=== PATIENT | female | born 1995 | race African-American/Black ===

== ENCOUNTER 2017-02-02 10:39 | Emergency (ER) | payer SELFPAY ==
[2017-02-02] MEDS ORDERED: IV NORMAL SALINE 1,000ML 1,000 ML IV ONE (11:15)
[2017-02-02 11:29] LABS: BASO % 0 % (0-3); EOS # 0.1 x10^3/uL (0.0-0.7); EOS % 1 % (0-3); HEMATOCRIT 35.2 % (36.0-47.0); LYMPH # 1.7 x10^3/uL (1.0-4.8); LYMPH % 27 % (24-48); MEAN CORPUSCULAR HEMOGLOBIN 30 pg (25-35); MEAN CORPUSCULAR HGB CONC 34 g/dL (31-37); MEAN CORPUSCULAR VOLUME 88 fL (79-100); MONO # 0.4 x10^3/uL (0.0-1.1); MONO % 7 % (0-9); NEUT % 65 % (31-73); PLATELET COUNT 169 x10^3/uL (140-400); RED BLOOD COUNT 4.01 x10^6/uL (3.50-5.40); RED CELL DISTRIBUTION WIDTH 12.9 % (11.5-14.5); WHITE BLOOD COUNT 6.2 x10^3/uL (4.0-11.0)
[2017-02-02] MEDS ORDERED: ACETAMINOPHEN 500 MG TABLET PO ONE (11:30)
[2017-02-02 11:39] LABS: ALBUMIN 3.8 g/dL (3.4-5.0); CALCIUM 8.5 mg/dL (8.5-10.1); CREATININE 0.6 mg/dL (0.6-1.0); GFR 149.9; MAGNESIUM 1.8 mg/dL (1.8-2.4); POTASSIUM 3.4 mmol/L (3.5-5.1); TOTAL BILIRUBIN 0.9 mg/dL (0.2-1.0); TOTAL PROTEIN 7.5 g/dL (6.4-8.2)
[2017-02-02] MEDS ORDERED: ONDANSETRON PF 4 MG/2 ML VIAL. IV ONE (11:50)
--- NOTE | 2017-02-02 12:29 | RAD ---
Indication right-sided abdominal pain. Initially transabdominal scans were obtained. Initial transabdominal scans were supplemented with transvaginal scans. No quantitative hCG value is available. In the fundus of the uterus there is a fluid collection compatible with a gestational sac. A definite yolk sac is not seen and no pole is apparent. Findings would be compatible with a very early, approximately 5 week, IUP. Correlation with a quantitative hCG value advised. The right ovary appears unremarkable. Within the left ovary there is a 1.5 cm mass compatible with a hemorrhagic cyst. There is no significant free fluid seen in the pelvis. IMPRESSION: Intrauterine fluid collection compatible with a gestational sac. No definite yolk sac or pole is seen. This finding should be correlated with a quantitative hCG value. Mass, probably reflecting a small corpus luteal cyst is seen associated with the left ovary
--- NOTE | 2017-02-02 12:31 | RAD ---
Indication right upper quadrant pain. Grayscale images were obtained targeted to the right upper quadrant. The visualized liver appears unremarkable. The gallbladder appears normal. The common bile duct diameter of approximately 3 mm is normal. The right kidney appears normal. The visualized inferior vena cava and pancreas also appear unremarkable. IMPRESSION: Normal right upper quadrant abdominal ultrasound exam
--- NOTE | 2017-02-02 13:16 | PHYS DOC ---
Past History Past Medical History: Other Past Surgical History: No Surgical History Smoking: Non-smoker Alcohol Use: None Drug Use: Marijuana Adult General Chief Complaint Chief Complaint: GI PROBLEM HPI HPI Patient is a 21 year old F who presents with constant dull upper abdominal pain consistent with previous Crohn's flares. She states that her pain usually improves after vomiting and having a bowel movement. However she did both this morning without significant improvement in her symptoms. She feels that her pain is mostly on the right side of her abdomen and upper abdomen. She has not had changes in bowel patterns and has been urinating without difficulty. Analisa did have a positive test 3 days ago at home. Her last period was approximately 5 weeks ago. She has had no care up to this point. Review of Systems Review of Systems Constitutional: Denies fever or chills [] Eyes: Denies change in visual acuity, redness, or eye pain [] HENT: Denies nasal congestion or sore throat [] Respiratory: Denies cough or shortness of breath [] Cardiovascular: No additional information not addressed in HPI [] GI: Negative except history of present illness : Denies dysuria or hematuria [] Musculoskeletal: Denies back pain or joint pain [] Integument: Denies rash or skin lesions [] Neurologic: Denies headache, focal weakness or sensory changes [] Endocrine: Denies polyuria or polydipsia [] Family History Family History Noncontributory Current Medications Current Medications Current Medications Medications (Trade) Dose Ordered Sig/Nely Start Time Stop Time Status Last Admin Dose Admin Acetaminophen (Tylenol) 1,000 mg 1X ONCE 02/02/17 11:30 02/02/17 11:31 DC 02/02/17 11:22 1,000 MG Ondansetron HCl (Zofran) 4 mg 1X ONCE 02/02/17 11:50 02/02/17 11:51 DC 02/02/17 12:19 4 MG Sodium Chloride 1,000 ml @ 1,000 mls/hr 1X ONCE 02/02/17 11:15 02/02/17 12:14 DC 02/02/17 11:21 1,000 MLS/HR Allergies Allergies Allergies Coded Allergies Type Severity Reaction Last Updated Verified No Known Drug Allergies 05/25/15 No Physical Exam Physical Exam Constitutional: Well developed, well nourished, no acute distress, non-toxic appearance. [] HENT: Normocephalic, atraumatic, bilateral external ears normal, oropharynx moist, no oral exudates, nose normal. [] Eyes: PERRLA, EOMI, conjunctiva normal, no discharge. [] Neck: Normal range of motion, no tenderness, supple, no stridor. [] Cardiovascular:Heart rate regular rhythm, no murmur [] Lungs & Thorax: Bilateral breath sounds clear to auscultation [] Abdomen: Bowel sounds normal, soft, no masses, no pulsatile masses. [] Mild right sided and epigastric tenderness to deep palpation Skin: Warm, dry, no erythema, no rash. [] Back: No tenderness, no CVA tenderness. [] Extremities: No tenderness, no cyanosis, no clubbing, ROM intact, no edema. [] Neurologic: Alert and oriented X 3, normal motor function, normal sensory function, no focal deficits noted. [] Psychologic: Affect normal, judgement normal, mood normal. [] Current Patient Data Vital Signs Vital Signs Date Time Temp Pulse Resp B/P (MAP) Pulse Ox O2 Delivery O2 Flow Rate FiO2 02/02/17 10:45 97.5 95 24 100 Room Air Lab Results Laboratory Tests Test 02/02/17 11:11 White Blood Count 6.2 x10^3/uL (4.0-11.0) Red Blood Count 4.01 x10^6/uL (3.50-5.40) Hemoglobin 12.0 g/dL (12.0-15.5) Hematocrit 35.2 % (36.0-47.0) L Mean Corpuscular Volume 88 fL (79-100) Mean Corpuscular Hemoglobin 30 pg (25-35) Mean Corpuscular Hemoglobin Concent 34 g/dL (31-37) Red Cell Distribution Width 12.9 % (11.5-14.5) Platelet Count 169 x10^3/uL (140-400) Neutrophils (%) (Auto) 65 % (31-73) Lymphocytes (%) (Auto) 27 % (24-48) Monocytes (%) (Auto) 7 % (0-9) Eosinophils (%) (Auto) 1 % (0-3) Basophils (%) (Auto) 0 % (0-3) Neutrophils # (Auto) 4.0 x10^3uL (1.8-7.7) Lymphocytes # (Auto) 1.7 x10^3/uL (1.0-4.8) Monocytes # (Auto) 0.4 x10^3/uL (0.0-1.1) Eosinophils # (Auto) 0.1 x10^3/uL (0.0-0.7) Basophils # (Auto) 0.0 x10^3/uL (0.0-0.2) Maternal Serum HCG Beta Subunit 5122 mIU/mL (0-6) H Sodium Level 138 mmol/L (136-145) Potassium Level 3.4 mmol/L (3.5-5.1) L Chloride Level 104 mmol/L (98-107) Carbon Dioxide Level 25 mmol/L (21-32) Anion Gap 9 (6-14) Blood Urea Nitrogen 13 mg/dL (7-20) Creatinine 0.6 mg/dL (0.6-1.0) Estimated GFR (Cockcroft-Gault) 149.9 BUN/Creatinine Ratio 22 (6-20) H Glucose Level 84 mg/dL (70-99) Calcium Level 8.5 mg/dL (8.5-10.1) Magnesium Level 1.8 mg/dL (1.8-2.4) Total Bilirubin 0.9 mg/dL (0.2-1.0) Aspartate Amino Transferase (AST) 17 U/L (15-37) Alanine Aminotransferase (ALT) 17 U/L (14-59) Alkaline Phosphatase 40 U/L (46-116) L Total Protein 7.5 g/dL (6.4-8.2) Albumin 3.8 g/dL (3.4-5.0) Albumin/Globulin Ratio 1.0 (1.0-1.7) Lipase 64 U/L (73-393) L EKG EKG [] Radiology/Procedures Radiology/Procedures Ultrasound abdomen and pelvis Impressions: IUP was noted at approximately 5 weeks. Both the appendix and gallbladder were visualized and found to be normal. No abnormalities in the liver or pancreas. Course & Med Decision Making Course & Med Decision Making Pertinent Labs and Imaging studies reviewed. (See chart for details) Analisa was given IV fluids, nausea medication and Tylenol. She had moderate improvement in her symptoms prior to discharge Dragon Disclaimer Dragon Disclaimer This chart was dictated in whole or in part using Voice Recognition software in a busy, high-work load, and often noisy Emergency Department environment. It may contain unintended and wholly unrecognized errors or omissions. Departure Departure: Impression: Primary Impression: Abdominal pain during Additional Impression: Disposition: 01 HOME, SELF-CARE Condition: STABLE Referrals: PCPEMERALD (PCP) Patient Instructions: Abdominal Pain During Additional Instructions: Analisa was seen in the emergency department for abdominal pain. No emergency medical condition was found on history or physical exam. She did have normal labs and imaging. An ultrasound revealed that her was in her uterus and approximately 5 weeks gestational age. Her pain did improve with IV fluid and medication. She was advised to follow-up with an OB as soon as possible to establish care and for further management. Problem Qualifiers Primary Impression: Abdominal pain during Trimester: first trimester Qualified Codes: O26.891 - Other specified related conditions, first trimester; R10.9 - Unspecified abdominal pain Additional Impression: Weeks of gestation: less than 8 weeks Qualified Codes: Z3A.01 - Less than 8 weeks gestation of MAXIMUS CARREON MD Feb 02, 2017 13:16
[2017-02-02 13:33] VITALS: BP 118/68
== END 2017-02-02 13:30 | disposition home or self-care (01) ==
LOC: ER 10:39
DX: O26.891 Other specified pregnancy related conditions, first trimester (principal); O21.9 Vomiting of pregnancy, unspecified; R10.11 Right upper quadrant pain; R10.13 Epigastric pain; F12.10 Cannabis abuse, uncomplicated; Z3A.08 8 weeks gestation of pregnancy
CPT/HCPCS: 36415; 76705; 76801; 76817; 80053; 83690; 83735; 84702; 85025; 96361; 96374; 99285; J2405; J7030

== ENCOUNTER 2017-02-07 18:49 | Emergency (ER) | payer SELFPAY ==
[~2017-02-07] VITALS: Ht 162.6 cm; Wt 62.6 kg
--- NOTE | 2017-02-07 18:52 | ED.ADGEN ---
Past History Past Medical History: Other Past Surgical History: No Surgical History Smoking: Non-smoker Alcohol Use: None Drug Use: Marijuana Adult General Chief Complaint Chief Complaint " I am about 6 weeks pregant.. it my first.. and I am just puking all day..." HPI HPI Patient is a 21 year old female who presents with above hx and complaints. Patient estimates she is approximately 6 weeks gravid. Ultrasound also rates her at 6 weeks 1 day. Patient denies any trauma. Patient denies any bad food. Patient denies any immunosuppression. Patient denies any travel. Patient denies any history of trauma. Pt. has had dry heaves all day. This is pt. lst . There is no history of STDs. Review of Systems Review of Systems Constitutional: Denies fever or chills [] Eyes: Denies change in visual acuity, redness, or eye pain [] HENT: Denies nasal congestion or sore throat [] Respiratory: Denies cough or shortness of breath [] Cardiovascular: No additional information not addressed in HPI [] GI: Complaints of generalized abdominal pain, nausea, vomiting,. Denies bloody stools or diarrhea [] : Denies dysuria or hematuria [] Musculoskeletal: Denies back pain or joint pain [] Integument: Denies rash or skin lesions [] Neurologic: Denies headache, focal weakness or sensory changes [] Endocrine: Denies polyuria or polydipsia [] Family History Family History Noncontributory Current Medications Current Medications Current Medications Medications (Trade) Dose Ordered Sig/Nely Start Time Stop Time Status Last Admin Dose Admin Famotidine (Pepcid) 20 mg 1X ONCE 02/07/17 19:45 02/07/17 19:50 DC 02/07/17 19:45 20 MG Fentanyl Citrate (Fentanyl 2ml Vial) 25 mcg 1X ONCE 02/07/17 19:45 02/07/17 19:50 DC 02/07/17 19:45 25 MCG Lactated Ringer's 1,000 ml @ 1,000 mls/hr Q1H 02/07/17 19:45 02/07/17 20:34 DC 02/07/17 19:00 1,000 MLS/HR Ondansetron HCl (Zofran Odt) 4 mg 1X ONCE 02/07/17 23:15 02/07/17 23:36 DC 02/07/17 19:08 4 MG Ondansetron HCl (Zofran) 4 mg 1X ONCE 02/07/17 19:45 02/07/17 19:50 DC 02/07/17 19:45 4 MG Sodium Chloride 1,000 ml @ 1,000 mls/hr 1X ONCE 02/07/17 23:15 02/07/17 23:36 DC 02/07/17 22:30 1,000 MLS/HR Allergies Allergies Allergies Coded Allergies Type Severity Reaction Last Updated Verified No Known Drug Allergies 05/25/15 No Physical Exam Physical Exam Constitutional: in acute distress, non-toxic appearance. [] HENT: Normocephalic, atraumatic, bilateral external ears normal, oropharynx dry , no oral exudates, nose normal. [] Eyes: PERRLA, EOMI, conjunctiva normal, no discharge. [] Neck: Normal range of motion, no tenderness, supple, no stridor. [] Cardiovascular:Heart rate regular rhythm, no murmur [] Lungs & Thorax: Bilateral breath sounds clear to auscultation [] Abdomen: Bowel sounds hyperactive, soft, generalized tenderness, no masses, no pulsatile masses. No active vaginal bleeding. Skin: Warm, dry, no erythema, no rash. [] Poor turgor Back: No tenderness, no CVA tenderness. [] Extremities: No tenderness, no cyanosis, no clubbing, ROM intact, no edema. [] No psoas or obturator sign Neurologic: Alert and oriented X 3, normal motor function, normal sensory function, no focal deficits noted. [] Psychologic: Affect normal, judgement normal, mood normal. [] Current Patient Data Lab Results Laboratory Tests Test 02/07/17 19:16 02/07/17 20:13 White Blood Count 6.6 x10^3/uL (4.0-11.0) Red Blood Count 4.08 x10^6/uL (3.50-5.40) Hemoglobin 12.2 g/dL (12.0-15.5) Hematocrit 35.3 % (36.0-47.0) L Mean Corpuscular Volume 87 fL (79-100) Mean Corpuscular Hemoglobin 30 pg (25-35) Mean Corpuscular Hemoglobin Concent 35 g/dL (31-37) Red Cell Distribution Width 12.6 % (11.5-14.5) Platelet Count 173 x10^3/uL (140-400) Neutrophils (%) (Auto) 40 % (31-73) Lymphocytes (%) (Auto) 49 % (24-48) H Monocytes (%) (Auto) 9 % (0-9) Eosinophils (%) (Auto) 2 % (0-3) Basophils (%) (Auto) 1 % (0-3) Neutrophils # (Auto) 2.7 x10^3uL (1.8-7.7) Lymphocytes # (Auto) 3.2 x10^3/uL (1.0-4.8) Monocytes # (Auto) 0.6 x10^3/uL (0.0-1.1) Eosinophils # (Auto) 0.1 x10^3/uL (0.0-0.7) Basophils # (Auto) 0.0 x10^3/uL (0.0-0.2) Prothrombin Time 10.9 SEC (9.4-11.4) Prothrombin Time INR 1.1 (0.9-1.1) PTT 24 SEC (23-33) Maternal Serum HCG Beta Subunit 14111 mIU/mL (0-6) H Sodium Level 138 mmol/L (136-145) Potassium Level 3.2 mmol/L (3.5-5.1) L Chloride Level 104 mmol/L (98-107) Carbon Dioxide Level 20 mmol/L (21-32) L Anion Gap 14 (6-14) Blood Urea Nitrogen 12 mg/dL (7-20) Creatinine 0.7 mg/dL (0.6-1.0) Estimated GFR (Cockcroft-Gault) 125.5 BUN/Creatinine Ratio 17 (6-20) Glucose Level 91 mg/dL (70-99) Calcium Level 9.3 mg/dL (8.5-10.1) Total Bilirubin 0.8 mg/dL (0.2-1.0) Aspartate Amino Transferase (AST) 16 U/L (15-37) Alanine Aminotransferase (ALT) 18 U/L (14-59) Alkaline Phosphatase 34 U/L (46-116) L Troponin I Quantitative < 0.017 ng/mL (0-0.055) Total Protein 7.7 g/dL (6.4-8.2) Albumin 4.1 g/dL (3.4-5.0) Albumin/Globulin Ratio 1.1 (1.0-1.7) Lipase 67 U/L (73-393) L Urine Collection Type Unknown Urine Color Yellow Urine Clarity Cloudy Urine pH 6.0 Urine Specific [place] >=1.030 Urine Protein 30 mg/dl (NEG-TRACE) Urine Glucose (UA) Neg mg/dL (NEG) Urine Ketones (Stick) 40 mg/dL (NEG) Urine Blood Neg (NEG) Urine Nitrite Neg (NEG) Urine Bilirubin Neg (NEG) Urine Urobilinogen Dipstick 1 mg/dL (0.2 mg/dL) Urine Leukocyte Esterase Neg (NEG) Urine RBC 1-2 /HPF (0-2) Urine WBC 1-4 /HPF (0-4) Urine Squamous Epithelial Cells Mod /LPF Urine Bacteria Few /HPF (0-FEW) Urine Mucus Mod /LPF Urine Opiates Screen Neg (NEG) Urine Methadone Screen Neg (NEG) Urine Barbiturates Neg (NEG) Urine Phencyclidine Screen Neg (NEG) Urine Amphetamine/Methamphetamine Neg (NEG) Urine Benzodiazepines Screen Neg (NEG) Urine Cocaine Screen Neg (NEG) Urine Cannabinoids Screen Pos (NEG) Urine Ethyl Alcohol Neg (NEG) EKG EKG [] Radiology/Procedures Radiology/Procedures Possible IUP[]-by ultrasound. See formal report when available. No heart rate yet determined. Estimated 6 weeks 1 day. Estimated date of 10/01/17 Course & Med Decision Making Course & Med Decision Making Pertinent Labs and Imaging studies reviewed. (See chart for details). Frequent , constant sips of juices and fluids. Zofran 4 mg up 4 x day for severe nausea and vomiting. Benadryl 25- 50 mg may be helpful. Must follow up cultures. Estelita candy or tea may be helpful for nausea and vomiting. Must follow up Ob. Daily vitamin or chew two Flinstones. Recommend no smoking. Must follow-up [] Final Impression Final Impression 1. Hyperemesis gravidarum [2.Dehydration 3. Hypokalemia 4. Blood Type A+ 5. Marijuana Use 6. BHCG= 21, 914 7. Possible Early IUP- (no heart rate detected as yet) Problems: Dragon Disclaimer Dragon Disclaimer This electronic medical record was generated, in whole or in part, using a voice recognition dictation system. ELIZABETH MORAN MD Feb 07, 2017 18:52
[2017-02-07] MEDS ORDERED: ONDANSETRON ODT 4 MG TAB.RAPDIS ONE (19:07)
[2017-02-07] MEDS ORDERED: IV RINGERS SOLUTION,LACTATED 1,000 ML IV SCH (19:45)
[2017-02-07] MEDS ORDERED: FAMOTIDINE 20 MG/2 ML VIAL IVP ONE (19:45)
[2017-02-07] MEDS ORDERED: ONDANSETRON PF 4 MG/2 ML VIAL. IV ONE (19:45)
[2017-02-07 20:03] LABS: BASO % 1 % (0-3); EOS # 0.1 x10^3/uL (0.0-0.7); EOS % 2 % (0-3); HEMATOCRIT 35.3 % (36.0-47.0); HEMOGLOBIN 12.2 g/dL (12.0-15.5); LYMPH # 3.2 x10^3/uL (1.0-4.8); LYMPH % 49 % (24-48); MEAN CORPUSCULAR HEMOGLOBIN 30 pg (25-35); MEAN CORPUSCULAR HGB CONC 35 g/dL (31-37); MEAN CORPUSCULAR VOLUME 87 fL (79-100); MONO # 0.6 x10^3/uL (0.0-1.1); MONO % 9 % (0-9); NEUT # 2.7 x10^3uL (1.8-7.7); NEUT % 40 % (31-73); PLATELET COUNT 173 x10^3/uL (140-400); RED BLOOD COUNT 4.08 x10^6/uL (3.50-5.40); RED CELL DISTRIBUTION WIDTH 12.6 % (11.5-14.5); WHITE BLOOD COUNT 6.6 x10^3/uL (4.0-11.0)
[2017-02-07 20:07] LABS: ALBUMIN 4.1 g/dL (3.4-5.0); ALBUMIN/GLOBULIN RATIO 1.1 (1.0-1.7); CALCIUM 9.3 mg/dL (8.5-10.1); CREATININE 0.7 mg/dL (0.6-1.0); GFR 125.5; POTASSIUM 3.2 mmol/L (3.5-5.1); TOTAL BILIRUBIN 0.8 mg/dL (0.2-1.0); TOTAL PROTEIN 7.7 g/dL (6.4-8.2)
[2017-02-07 20:45] LABS: BARBITURATES NEG (NEG); BENZODIAZEPINES NEG (NEG); CANNABINOIDS POS (NEG); COCAINE NEG (NEG); METHADONE NEG (NEG); OPIATES NEG (NEG); PHENCYCLIDINE NEG (NEG)
[2017-02-07 20:46] LABS: AMPHETAMINE/METHAMPHETAMINE NEG (NEG)
[2017-02-07 21:20] LABS: COLOR,URINE YELLOW
[2017-02-07 21:21] LABS: BACTERIA,URINE FEW /HPF (0-FEW); BILIRUBIN,URINE NEG (NEG); CLARITY,URINE CLOUDY; GLUCOSE,URINE NEG (NEG); NITRITE,URINE NEG (NEG); SQUAMOUS EPITHELIAL CELL,UR MOD /LPF; UROBILINOGEN,URINE 1 mg/dL (0.2 mg/dL)
[2017-02-07 22:36] VITALS: BP 100/64
--- NOTE | 2017-02-07 22:57 | RAD ---
First trimester OB ultrasound HISTORY: Abdominal pain and vomiting. . COMPARISON: None are available at this time. Transabdominal scan Uterus and adnexa are poorly seen. Transvaginal scan Uterus measures 8.3 cm longitudinal by 4.5 cm AP. Uterus measures 5.8 cm wide. Gestational sac is identified with a yolk sac. A pole or cardiac activity are not demonstrated. The gestational sac measures a mean sac diameter of 1.29 cm compatible with an estimated age of 6 weeks 1 day. Right ovary measures 2.9 cm long axis. Positive blood flow to the right ovary. Left ovary measures 3.4 cm long axis with positive blood flow and a small cyst. Mild free pelvic fluid is identified. IMPRESSION: A gestational sac with yolk sac is not identified. However, a pole and cardiac activity are not documented at this time. This could still be due to an early normal . Recommend correlation with quantitative beta hCG value. A short-term ultrasound follow-up could be obtained. Electronically signed by: Gabriel Phan MD (02/07/2017 10:54 PM) [id number]
[2017-02-07] MEDS ORDERED: IV NORMAL SALINE 1,000ML 1,000 ML IV ONE (23:15)
[2017-02-07] MEDS ORDERED: ONDANSETRON ODT 4 MG TAB.RAPDIS PO ONE (23:15)
[2017-02-07] MEDS ORDERED: ONDA8TAB12 PO (23:20)
== END 2017-02-07 23:32 | disposition home or self-care (01) ==
LOC: ER 18:49
DX: O21.1 Hyperemesis gravidarum with metabolic disturbance (principal); E86.0 Dehydration; R10.84 Generalized abdominal pain; O99.321 Drug use complicating pregnancy, first trimester; F12.10 Cannabis abuse, uncomplicated; Z3A.01 Less than 8 weeks gestation of pregnancy
CPT/HCPCS: 36415; 76801; 80053; 80307; 81001; 83690; 84484; 84702; 85025; 85610; 85730; 86900; 86901; 96361; 96374; 96375; 99285; J2405; J3010; J7120; Q0162; S0028; G0479; J7030

== ENCOUNTER 2017-02-10 18:57 | Emergency (ER) | payer OTHER ==
[~2017-02-10 18:57] MED LIST: ONDA8TAB12 PO
[2017-02-10] MEDS ORDERED: IV NORMAL SALINE 1,000ML 1,000 ML IV ONE ×2 (19:30→20:30)
[2017-02-10] MEDS ORDERED: ONDANSETRON PF 4 MG/2 ML VIAL. IV ONE ×2 (19:45→23:00)
[2017-02-10 19:50] LABS: BASO % 1 % (0-3); EOS # 0.1 x10^3/uL (0.0-0.7); EOS % 1 % (0-3); HEMATOCRIT 35.3 % (36.0-47.0); HEMOGLOBIN 12.1 g/dL (12.0-15.5); LYMPH # 2.5 x10^3/uL (1.0-4.8); LYMPH % 38 % (24-48); MEAN CORPUSCULAR HEMOGLOBIN 30 pg (25-35); MEAN CORPUSCULAR HGB CONC 34 g/dL (31-37); MEAN CORPUSCULAR VOLUME 88 fL (79-100); MONO # 0.6 x10^3/uL (0.0-1.1); MONO % 10 % (0-9); NEUT # 3.3 x10^3uL (1.8-7.7); NEUT % 50 % (31-73); PLATELET COUNT 160 x10^3/uL (140-400); RED BLOOD COUNT 4.03 x10^6/uL (3.50-5.40); RED CELL DISTRIBUTION WIDTH 12.9 % (11.5-14.5); WHITE BLOOD COUNT 6.5 x10^3/uL (4.0-11.0)
[2017-02-10 19:55] LABS: ALBUMIN 4.2 g/dL (3.4-5.0); ALBUMIN/GLOBULIN RATIO 1.2 (1.0-1.7); CALCIUM 9.3 mg/dL (8.5-10.1); CREATININE 0.7 mg/dL (0.6-1.0); GFR 125.5; POTASSIUM 3.1 mmol/L (3.5-5.1); TOTAL BILIRUBIN 1.2 mg/dL (0.2-1.0); TOTAL PROTEIN 7.8 g/dL (6.4-8.2)
[2017-02-10 20:05] LABS: BACTERIA,URINE FEW /HPF (0-FEW); BILIRUBIN,URINE NEG (NEG); CLARITY,URINE HAZY; COLOR,URINE AMBER; GLUCOSE,URINE NEG (NEG); NITRITE,URINE NEG (NEG); SQUAMOUS EPITHELIAL CELL,UR MANY /LPF; UROBILINOGEN,URINE 1 mg/dL (0.2 mg/dL)
--- NOTE | 2017-02-10 20:07 | ED.ADGEN ---
Past History Past Medical History: Other Past Surgical History: No Surgical History Smoking: Non-smoker Alcohol Use: None Drug Use: None Adult General HPI HPI Patient is a 21-year-old woman, history of Crohn's disease, who is at 6 weeks gestation with a single IUP visualized on ultrasound during an ED visit several days ago, who presents emergency Department with a complaint of persistent nausea and vomiting. Patient states that she is experiencing vomiting "all the time". She states she is unable tolerate food or fluids due to the nausea and vomiting. States that initially she was vomiting food and fluid, now has blood-tinged mucus. Patient states she has been using Zofran as directed, states that does not seem it is working, she states however that she is "only been taking on I really need it". Patient denies any rigors or chills, states that she has pain that radiates from her upper abdomen into her throat, "a burning feeling". She denies any lower abdominal pain or cramping, any pain with urination, however states that when she was given a urine sample in the ED she did note some spotting, with small amounts of blood. Review of Systems Review of Systems Constitutional: Denies fever or chills [] Eyes: Denies change in visual acuity, redness, or eye pain [] HENT: Denies nasal congestion or sore throat [] Respiratory: Denies cough or shortness of breath [] Cardiovascular: No additional information not addressed in HPI [] GI: Upper abdominal pain radiating into the throat, nausea, vomiting, no bloody stools or diarrhea. : Denies dysuria or hematuria []vaginal spotting in the ED. Musculoskeletal: Denies back pain or joint pain [] Integument: Denies rash or skin lesions [] Neurologic: Denies headache, focal weakness or sensory changes [] Endocrine: Denies polyuria or polydipsia [] Current Medications Current Medications Current Medications Medications (Trade) Dose Ordered Sig/Nely Start Time Stop Time Status Last Admin Dose Admin Al Hydroxide/Mg Hydroxide (Mylanta Plus Xs) 30 ml 1X ONCE 02/10/17 20:15 02/10/17 20:16 DC 02/10/17 20:24 30 ML Cephalexin HCl (Keflex) 500 mg 1X ONCE 02/10/17 23:00 02/10/17 23:01 DC 02/10/17 22:58 500 MG Diphenhydramine HCl (Benadryl) 25 mg 1X ONCE 02/10/17 20:15 02/10/17 20:16 DC 02/10/17 20:28 25 MG Metoclopramide HCl (Reglan) 10 mg 1X ONCE 02/10/17 20:15 02/10/17 20:16 DC 02/10/17 20:28 10 MG Metronidazole (Flagyl) 500 mg 1X ONCE 02/10/17 22:00 02/10/17 22:01 DC 02/10/17 22:12 500 MG Ondansetron HCl (Zofran) 4 mg 1X ONCE 02/10/17 23:00 02/10/17 23:01 DC 02/10/17 22:58 4 MG Potassium Chloride (Klor-Con) 40 meq 1X ONCE 02/10/17 22:00 02/10/17 22:01 DC 02/10/17 22:13 40 MEQ Sodium Chloride 1,000 ml @ 1,000 mls/hr 1X ONCE 02/10/17 20:30 02/10/17 21:29 DC 02/10/17 20:45 1,000 MLS/HR Allergies Allergies Allergies Coded Allergies Type Severity Reaction Last Updated Verified No Known Drug Allergies 05/25/15 No Physical Exam Physical Exam Constitutional: Well developed, well nourished, appears uncomfortable, non- toxic appearance. [] HENT: Normocephalic, atraumatic, bilateral external ears normal, oropharynx moist, no oral exudates, nose normal. [] Eyes: PERRLA, EOMI, conjunctiva normal, no discharge. [] Neck: Normal range of motion, no tenderness, supple, no stridor. [] Cardiovascular:Heart rate regular rhythm, no murmur, S1, S2, rubs or gallops. [] Lungs & Thorax: Bilateral breath sounds clear to auscultation, no wheezing, rhonchi, rales. No chest wall crepitus or tenderness. [] Abdomen: Bowel sounds normal, soft, mild initial patient in the epigastric region, no right upper quadrant tenderness, no lower abdominal tenderness, no rebound, rigidity, no guarding, no masses, no pulsatile masses. [] Skin: Warm, dry, no erythema, no rash. [] Back: No tenderness, no CVA tenderness. [] Extremities: No tenderness, no cyanosis, no clubbing, ROM intact, no edema. Negative Homans sign. [] Neurologic: Alert and oriented X 3, normal motor function, normal sensory function, no focal deficits noted. [] Psychologic: Affect normal, judgement normal, mood normal. [] Pelvic examination: External examination is normal, bimanual examination reveals a closed os, no tenderness to palpation, no adnexal masses or tenderness identified. Patient noted to have a moderate amount of white discharge, and a small amount of blood noted on glove, which was read, speculum examination performed of issue, reveals a normal-appearing cervix, with a small amount of raul blood noted at os, no masses, no leakage or oozing, no passage of tissue, no clots, no fluid, no other abnormalities identified. Specimens taken without issue. Current Patient Data Vital Signs Vital Signs Date Time Temp Pulse Resp B/P (MAP) Pulse Ox O2 Delivery O2 Flow Rate FiO2 02/11/17 00:01 98.3 84 16 99/42 (61) 100 Room Air Lab Results Laboratory Tests Test 02/10/17 19:15 02/10/17 19:26 Urine Collection Type Unknown Urine Color Nataliia Urine Clarity Hazy Urine pH 6.0 Urine Specific Industry >=1.030 Urine Protein 30 mg/dl (NEG-TRACE) Urine Glucose (UA) Neg mg/dL (NEG) Urine Ketones (Stick) >=160 mg/dL (NEG) Urine Blood Trace (NEG) Urine Nitrite Neg (NEG) Urine Bilirubin Neg (NEG) Urine Urobilinogen Dipstick 1 mg/dL (0.2 mg/dL) Urine Leukocyte Esterase Neg (NEG) Urine RBC 3-5 /HPF (0-2) Urine WBC 5-10 /HPF (0-4) Urine Squamous Epithelial Cells Many /LPF Urine Bacteria Few /HPF (0-FEW) Urine Mucus Marked /LPF White Blood Count 6.5 x10^3/uL (4.0-11.0) Red Blood Count 4.03 x10^6/uL (3.50-5.40) Hemoglobin 12.1 g/dL (12.0-15.5) Hematocrit 35.3 % (36.0-47.0) L Mean Corpuscular Volume 88 fL (79-100) Mean Corpuscular Hemoglobin 30 pg (25-35) Mean Corpuscular Hemoglobin Concent 34 g/dL (31-37) Red Cell Distribution Width 12.9 % (11.5-14.5) Platelet Count 160 x10^3/uL (140-400) Neutrophils (%) (Auto) 50 % (31-73) Lymphocytes (%) (Auto) 38 % (24-48) Monocytes (%) (Auto) 10 % (0-9) H Eosinophils (%) (Auto) 1 % (0-3) Basophils (%) (Auto) 1 % (0-3) Neutrophils # (Auto) 3.3 x10^3uL (1.8-7.7) Lymphocytes # (Auto) 2.5 x10^3/uL (1.0-4.8) Monocytes # (Auto) 0.6 x10^3/uL (0.0-1.1) Eosinophils # (Auto) 0.1 x10^3/uL (0.0-0.7) Basophils # (Auto) 0.0 x10^3/uL (0.0-0.2) Maternal Serum HCG Beta Subunit 30182 mIU/mL (0-6) H Sodium Level 137 mmol/L (136-145) Potassium Level 3.1 mmol/L (3.5-5.1) L Chloride Level 102 mmol/L (98-107) Carbon Dioxide Level 24 mmol/L (21-32) Anion Gap 11 (6-14) Blood Urea Nitrogen 12 mg/dL (7-20) Creatinine 0.7 mg/dL (0.6-1.0) Estimated GFR (Cockcroft-Gault) 125.5 BUN/Creatinine Ratio 17 (6-20) Glucose Level 92 mg/dL (70-99) Calcium Level 9.3 mg/dL (8.5-10.1) Total Bilirubin 1.2 mg/dL (0.2-1.0) H Aspartate Amino Transferase (AST) 16 U/L (15-37) Alanine Aminotransferase (ALT) 17 U/L (14-59) Alkaline Phosphatase 33 U/L (46-116) L Total Protein 7.8 g/dL (6.4-8.2) Albumin 4.2 g/dL (3.4-5.0) Albumin/Globulin Ratio 1.2 (1.0-1.7) Lipase 80 U/L (73-393) Microbiology 02/10/17 Wet Prep - Final, Complete EKG EKG Not indicated.[] Radiology/Procedures Radiology/Procedures [][address] [address] IMAGING REPORT Signed PATIENT: INA BAI ACCOUNT: [id number] : 1995 LOCATION: ER AGE: 21 SEX: F EXAM STATUS: REG ER ORD. PHYSICIAN: MOSES DURANT DO REASON: Vag bleeding/abd pain/N/V PROCEDURE: OB <14 WKS W/TV OB ultrasound less than 14 weeks to include transabdominal and transvaginal imaging 02/10/2017 CLINICAL HISTORY: First trimester with vaginal spotting. TECHNIQUE: Using the distended urinary bladder as a sonographic window, a real-time ultrasound examination of the pelvis was performed. Additionally in an attempt to better evaluate the uterus and adnexa, a transvaginal ultrasound study was performed. Multiple images were obtained. FINDINGS: Comparison study is dated 02/07/2017. A gestational sac is seen within the endometrial canal within the body/fundus of the uterus. Within the gestational sac a yolk sac and associated embryonic pole are seen. The CRL of this embryonic pole measures 4 mm. This corresponds to an estimated gestational age by ultrasound of 6 weeks 1 day plus or minus a standard deviation of 5 days. Embryonic cardiac activity is seen with a heart rate of 105 beats per minutes. Lateral to the gestational sac within the uterus is a heterogeneous oval-shaped area of decreased echogenicity is seen which measures 1.6 cm greatest diameter. This is consistent with an area of subchorionic hemorrhage. The uterus is otherwise within normal limits. The maternal cervix is closed. It measures 3.3 cm in length. The right ovary is normal in size and echogenicity. It measures 3.1 x 1.9 x 1.8 cm in size. The left ovary measures 3.5 x 2.2 x 2.9 cm in size. Within the left ovary a complex cystic area is seen which measures 2.3 cm in size. This likely represents a corpus luteum. Small amount of free fluid is seen within the pelvic cul-de-sac. IMPRESSION: Findings are seen consistent with a single living IUP with an estimated gestational age by ultrasound of 6 weeks 1 day plus or minus a standard deviation of 4 days. The estimated date of delivery by ultrasound of 10/05/2017. Electronically signed by: Indio Sanz MD (02/10/2017 11:27 PM) [facility] DICTATED AND SIGNED BY: INDIO SANZ MD DATE: 02/10/17 [id number] CC: MOSES DURANT DO; PCP,NO ~ Course & Med Decision Making Course & Med Decision Making Pertinent Labs and Imaging studies reviewed. (See chart for details) [][address] [address] IMAGING REPORT Signed PATIENT: INA BAI ACCOUNT: [id number] : 1995 LOCATION: ER AGE: 21 SEX: F EXAM STATUS: REG ER ORD. PHYSICIAN: ELIZABETH MORAN MD REASON: Abd. pain gravid 6 weeks PROCEDURE: PREG 1ST TRIMESTER ADDENDUM There is a typographic error in the first sentence of the impression, which mistakenly said "a gestational sac with yolk sac is not identified ". For clarification, a gestational sac with yolk sac is identified. The impression should read as follows IMPRESSION: A gestational sac with yolk sac is identified. However a pole and cardiac activity are not documented at this time. This could still be due to an early normal . Recommend correlation with quantitative beta hCG values. A short-term ultrasound follow-up could be obtained in several days to evaluate for pole and cardiac activity development. This correction was communicated by telephone with Dr. Porter in the emergency room at 2310 hours. Electronically signed by: Gabriel Phan MD (02/07/2017 11:13 PM) [facility] DICTATED AND SIGNED BY: GABRIEL PHAN MD DATE: 02/07/17 0460 CC: ELIZABETH MORAN MD; PCP,NO ~ Review of records shows that his previous visit, ultrasound showed a gestational sac with evidence of cardiac activity or pole, which began consistent with early , therefore repeat beta Quant was ordered. Patient's laboratory studies were also ordered, patient received Zofran, IV fluids, Reglan and Benadryl in the ED. Patient at this point is spitting up clear mucus, with no actual emesis noted at this time. Patient states she still feels extremely nauseated, is complaining mostly of burning in the esophageal region. Discussed with patient that this is consistent with her multiple sodas of emesis, but as stated she's had no raul blood, did have blood-tinged mucus, and has no blood and mucus currently. Pelvic examination reveals a small amount of red blood at the os, os however is closed, no evidence of passage of tissue, no clots or passage of tissue noted, no passage of fluid, os is otherwise unremarkable with no friability. Examination is nontender, patient has no pain with palpation, no adnexal masses or other abnormalities identified. Patient's previous evaluation reviewed, although it appears that this is likely an IUP, previous ultrasound states that as there is no pole or cardiac activity at this time, although this is a presumed gestational sac, repeat ultrasound is recommended. At this time, as patient is presenting with vaginal bleeding, and persistent symptoms, will order repeat ultrasound for evaluation. Patient is agreeable with this plan. Patient received Maalox, Zofran, Reglan and Benadryl, with syncope improvement of nausea and vomiting symptoms. IV fluids infusing, patient's vital signs are within normal limits. Laboratory studies reveal a potassium of 3.1, wet prep reveals clue cells consistent with bacterial vaginosis. Patient also noted to have bacteria in the urine, with 5-10 WBCs. Patient received metronidazole, potassium chloride orally, and Keflex in the ED. Patient at this point has not had any further emesis in the ED, states that she is feeling better, is asleep on reevaluation, awaiting ultrasound. Delay in obtaining ultrasound due to multiple ultrasounds required [facility] prior to the instrument repair technician being able to drive out to [place] to perform the patient 's ultrasound. Ultrasound reveals a single IUP at 6 weeks 1 day, heart tones at 105 bpm, appropriate for the patient's gestational age. Patient noted to have a subchorionic hemorrhage, consistent with the examination findings, and a closed cervix, consistent with examination as well. Patient has had no further bleeding , and denies any lower abdominal pain. She states that her epigastric pain is improved with medications. As stated she's had no further emesis in the ED. Patient received medications as stated, she tolerated without issue. Additionally, patient received RhoGAM, after discussed risk versus benefits regarding future pregnancies. Lengthy discussion at bedside with patient regarding risk of potential miscarriage associated with subchorionic hemorrhage , importance of staying well-hydrated, potassium rich diet, use of Zofran, Reglan, B6 and Unasyn, additionally importance of taking Keflex and metronidazole as directed. Patient was informed that if culture results require change in medications she will be contacted via telephone. Patient was instructed to contact her OB, with whom she has an initial visit on the 05 of March, to determine if she can arrange for earlier follow-up, and test of cure. We also discussed concerning symptoms that would prompt return to the emergency department for additional evaluation. Patient voiced understanding and agreement with instructions Precautions, and prescriptions, discharged home in stable condition with plan and precautions as above. Final Impression Final Impression [] Problems: Dragon Disclaimer Dragon Disclaimer This electronic medical record was generated, in whole or in part, using a voice recognition dictation system. Departure: Impression: Primary Impression: Bacterial vaginosis Additional Impressions: Bacteriuria in Hypokalemia Hyperemesis gravidarum Subchorionic hemorrhage in first trimester Disposition: 01 HOME, SELF-CARE Condition: IMPROVED Scripts Pyridoxine Hcl (VITAMIN B-6) 25 Mg Tablet 25 MG PO TID for NAUSEA, #27 TAB Prov: MOSES DURANT DO 02/11/17 Doxylamine Succinate (Unisom) 25 Mg Tablet 25 MG PO PRN QHS Y for NAUSEA, #20 TAB Take one half tablet to one full tablet at bedtime to help prevent nausea. Caution with use of this medication as it causes drowsiness. Prov: MOSES DURANT DO 02/11/17 Cephalexin (KEFLEX) 500 Mg Capsule 1 CAP PO BID, #14 CAP Prov: MOSES DURANT DO 02/11/17 Metronidazole (METRONIDAZOLE) 500 Mg Tablet 1 TAB PO BID, #14 TAB Prov: MOSES DURANT DO 02/11/17 Metoclopramide Hcl (REGLAN) 10 Mg Tablet 1 TAB PO PRN Q8HRS Y for NAUSEA/VOMITING, #20 TAB Prov: MOSES DURANT DO 02/11/17 Ondansetron Hcl (ZOFRAN) 4 Mg Tablet 4 MG PO PRN Q8HRS Y for NAUSEA/VOMITING, #20 Prov: MOSES DURANT DO 02/11/17 MOSES DURANT DO Feb 10, 2017 20:07
[2017-02-10] MEDS ORDERED: METOCLOPRAMIDE HCL 10 MG/2 ML VIAL. IV ONE (20:15)
[2017-02-10] MEDS ORDERED: diphenhydrAMINE 50 MG/ML VIAL IVP ONE (20:15)
[2017-02-10] MEDS ORDERED: MAG HYDROX/AL HYDROX/SIMETH 30 ML ORAL.SUSP PO ONE (20:15)
[2017-02-10] MEDS ORDERED: POTASSIUM CHLORIDE 20 MEQ TABLET.ER. PO ONE (22:00)
[2017-02-10] MEDS ORDERED: metroNIDAZOLE 500 MG TABLET PO ONE (22:00)
[2017-02-10] MEDS ORDERED: CEPHALEXIN 250 MG CAPSULE PO ONE (23:00)
--- NOTE | 2017-02-10 23:31 | RAD ---
OB ultrasound less than 14 weeks to include transabdominal and transvaginal imaging 02/10/2017 CLINICAL HISTORY: First trimester with vaginal spotting. TECHNIQUE: Using the distended urinary bladder as a sonographic window, a real-time ultrasound examination of the pelvis was performed. Additionally in an attempt to better evaluate the uterus and adnexa, a transvaginal ultrasound study was performed. Multiple images were obtained. FINDINGS: Comparison study is dated 02/07/2017. A gestational sac is seen within the endometrial canal within the body/fundus of the uterus. Within the gestational sac a yolk sac and associated embryonic pole are seen. The CRL of this embryonic pole measures 4 mm. This corresponds to an estimated gestational age by ultrasound of 6 weeks 1 day plus or minus a standard deviation of 5 days. Embryonic cardiac activity is seen with a heart rate of 105 beats per minutes. Lateral to the gestational sac within the uterus is a heterogeneous oval-shaped area of decreased echogenicity is seen which measures 1.6 cm greatest diameter. This is consistent with an area of subchorionic hemorrhage. The uterus is otherwise within normal limits. The maternal cervix is closed. It measures 3.3 cm in length. The right ovary is normal in size and echogenicity. It measures 3.1 x 1.9 x 1.8 cm in size. The left ovary measures 3.5 x 2.2 x 2.9 cm in size. Within the left ovary a complex cystic area is seen which measures 2.3 cm in size. This likely represents a corpus luteum. Small amount of free fluid is seen within the pelvic cul-de-sac. IMPRESSION: Findings are seen consistent with a single living IUP with an estimated gestational age by ultrasound of 6 weeks 1 day plus or minus a standard deviation of 4 days. The estimated date of delivery by ultrasound of 10/05/2017. Electronically signed by: Indio Sanz MD (02/10/2017 11:27 PM) [facility]
[2017-02-11] MEDS ORDERED: CEPH-264 PO (00:13)
[2017-02-11] MEDS ORDERED: METR500T8 PO (00:13)
[2017-02-11] MEDS ORDERED: DOXY25TA38 PO (00:13)
[2017-02-11] MEDS ORDERED: ONDA4TAB7 PO (00:13)
[2017-02-11] MEDS ORDERED: PYRI25TA2 PO (00:13)
[2017-02-11] MEDS ORDERED: METO10TA81 PO (00:13)
[2017-02-11 01:28] VITALS: BP 99/48
[2017-02-11] MEDS ORDERED: MAG HYDROX/AL HYDROX/SIMETH 30 ML ORAL.SUSP PO ONE (02:00)
[2017-02-11 02:01] VITALS: BP 100/49
[2017-02-12 14:10] LABS: CHLAMYDIA PROBE Negative (Negative)
== END 2017-02-11 02:17 | disposition home or self-care (01) ==
LOC: ER 18:57
DX: O23.591 Infection of other part of genital tract in pregnancy, first trimester (principal); O46.8X1 Other antepartum hemorrhage, first trimester; N76.0 Acute vaginitis; R82.71 Bacteriuria; O21.1 Hyperemesis gravidarum with metabolic disturbance; O99.281 Endocrine, nutritional and metabolic diseases complicating pregnancy, first trimester; K50.90 Crohn's disease, unspecified, without complications; B96.89 Other specified bacterial agents as the cause of diseases classified elsewhere; Z3A.01 Less than 8 weeks gestation of pregnancy
CPT/HCPCS: 36415; 76801; 76817; 80053; 81001; 83690; 84702; 85025; 86850; 86900; 86901; 87086; 87491; 87591; 96361; 96374; 96375; 96376; 99285; J1200; J2405; J2765; J2791; Q0111; J7030

== ENCOUNTER 2017-02-18 22:18 | Emergency (ER) | payer OTHER ==
[~2017-02-18] VITALS: Ht 162.6 cm; Wt 60.9 kg
[~2017-02-18 22:18] MED LIST changes: +CEPH-264 PO; +DOXY25TA38 PO; +METO10TA81 PO; +METR500T8 PO; +ONDA4TAB7 PO; +PYRI25TA2 PO
[2017-02-18] MEDS ORDERED: ONDANSETRON ODT 4 MG TAB.RAPDIS ONE (22:27)
[2017-02-18 22:55] LABS: BASO # 0.1 x10^3/uL (0.0-0.2); BASO % 1 % (0-3); EOS # 0.1 x10^3/uL (0.0-0.7); EOS % 2 % (0-3); HEMATOCRIT 36.3 % (36.0-47.0); HEMOGLOBIN 12.4 g/dL (12.0-15.5); LYMPH # 2.7 x10^3/uL (1.0-4.8); LYMPH % 40 % (24-48); MEAN CORPUSCULAR HEMOGLOBIN 30 pg (25-35); MEAN CORPUSCULAR HGB CONC 34 g/dL (31-37); MEAN CORPUSCULAR VOLUME 88 fL (79-100); MONO # 0.6 x10^3/uL (0.0-1.1); MONO % 9 % (0-9); NEUT # 3.2 x10^3uL (1.8-7.7); NEUT % 48 % (31-73); PLATELET COUNT 195 x10^3/uL (140-400); RED BLOOD COUNT 4.14 x10^6/uL (3.50-5.40); WHITE BLOOD COUNT 6.6 x10^3/uL (4.0-11.0)
[2017-02-18] MEDS ORDERED: ONDANSETRON PF 4 MG/2 ML VIAL. IV ONE (23:00)
[2017-02-18] MEDS ORDERED: ONDANSETRON ODT 4 MG TAB.RAPDIS PO ONE (23:00)
[2017-02-18] MEDS ORDERED: FAMOTIDINE 20 MG/2 ML VIAL IVP ONE (23:00)
[2017-02-18] MEDS ORDERED: IV NORMAL SALINE 1,000ML 1,000 ML IV SCH ×2 (23:00→23:30)
[2017-02-18 23:05] LABS: ALBUMIN 3.9 g/dL (3.4-5.0); ALBUMIN/GLOBULIN RATIO 1.1 (1.0-1.7); CALCIUM 8.9 mg/dL (8.5-10.1); CREATININE 0.7 mg/dL (0.6-1.0); GFR 125.5; POTASSIUM 3.4 mmol/L (3.5-5.1); TOTAL BILIRUBIN 0.7 mg/dL (0.2-1.0); TOTAL PROTEIN 7.4 g/dL (6.4-8.2)
[2017-02-18] MEDS ORDERED: PROMETHAZINE 25 MG in IV NORMAL SALINE 50ML 50 ML IV PRN (23:30)
[2017-02-18] MEDS ORDERED: IV NORMAL SALINE 50ML 50 ML ONE (23:45)
[2017-02-18] MEDS ORDERED: PROMETHAZINE 25 MG/ML VIAL IV ONE (23:46)
[2017-02-19] MEDS ORDERED: PROMETHAZINE IM 25 MG/ML VIAL IM ONE (00:15)
[2017-02-19] MEDS ORDERED: PROM25SU32 RC (00:16)
--- NOTE | 2017-02-19 00:20 | PHYS DOC ---
General Chief Complaint: VOMITING IN Stated Complaint: VOMITING X 2 DAYS, 7 WKS Time Seen by MD: 22:45 Source: patient, old records Exam Limitations: no limitations Problems: History of Present Illness Initial Comments Patient is a 18-year-old 1 para 0, 7 weeks gestation female to ED with hyperemesis gravidarum. Patient states that she's had by mouth intolerance with nausea and vomiting for the past 2 days. She says she's had severe morning sickness and has been seen here multiple times. She denies any new or changing symptoms fever chills sweats or body aches no change in bowel habits. No vaginal bleeding or discharge no pelvic pain. Patient was seen here 8 days ago with similar symptoms. At that time ultrasound had been performed with normal intrauterine , bacterial vaginosis diagnosed and the patient was discharged with Flagyl cephalexin. Patient states she's had trouble keeping his medications down but has noted no new or worsening nausea and vomiting with the medications. She is pale and and appears dehydrated on arrival her vital signs are stable. Timing/Duration: getting worse, changing over time Severity: moderate Modifying Factors: worse with eating, improves with medication Associated Symptoms: nausea/vomiting Allergies: Coded Allergies: No Known Drug Allergies (Unverified , 05/25/15) Past Medical History Medical History: no pertinent history Surgical History: noncontributory Social History Smoker: non-smoker Alcohol: none Drugs: none Review of Systems Constitutional: denies chills, denies diaphoresis, denies fever, malaise Respiratory: denies cough, denies shortness of breath, denies wheezing Cardiovascular: denies chest pain, denies palpitations, denies syncope Gastrointestinal: see HPI Genitourinary: denies dysuria, denies frequency, denies hematuria Musculoskeletal: denies back pain, denies joint swelling, denies neck pain Skin: see HPI Psychiatric/Neurological: see HPI Physical Exam General Appearance: WD/WN, moderate distress Eyes: bilateral eye normal inspection, bilateral eye PERRL, bilateral eye EOMI Ear, Nose, Throat: hearing grossly normal, normal ENT inspection (dry membranes ) Neck: non-tender, supple Respiratory: normal breath sounds, no respiratory distress Cardiovascular: normal peripheral pulses, regular rate, rhythm Gastrointestinal: soft (abdominal muscle tenderness noted negative Ashley negative McBurney abdomen is soft and nondistended bowel sounds are present) Back: no CVA tenderness, no vertebral tenderness Extremities: non-tender, normal inspection, no pedal edema Neurologic/Psychiatric: interface control officer II-XII nml as tested, no motor/sensory deficits, alert, normal mood/affect, oriented x 3 Skin: pallor (poor turgor) Orders, Labs, Meds Potassium 3.4, sodium 134, reassuring labs and urine studies. Patient rechecked after first liter normal saline IV bolus, she remains achy and weak we will repeat 1 L bolus. Patient greatly improved after second liter, her color has improved she is now sitting up and much more interactive. I discussed promethazine per rectum for intractable nausea and vomiting and the patient is agreeable. We'll give 1 dose IM and suppositories for breakthrough nausea and vomiting. Patient cautioned to discontinue metoclopramide while taking Phenergan. Signs and symptoms to monitor as well as indications for urgent return discussed. Patient's questions were answered she has an OB, appointment upcoming and intends to follow-up with them. She depressed agreement and understanding of treatment plan. Departure Time of Disposition: 00:18 Disposition: HOME, SELF-CARE Diagnosis: hyperemesis gravidarum Condition: IMPROVED Patient Instructions: Hyperemesis Gravidarum Additional Instructions: Discontinue metoclopramide. Continue other medications. Continue oral hydration with Gatorade or water, small frequent sips. Follow-up with ground school instructor March 05 as scheduled. Prescription: Promethazine 25 mg suppositories Return to ED with new or changing symptoms. DMITRI GOMEZ DO Feb 19, 2017 00:20
[2017-02-19 00:30] VITALS: BP 101/47
== END 2017-02-19 00:32 | disposition home or self-care (01) ==
LOC: ER 22:18
DX: O21.0 Mild hyperemesis gravidarum (principal); Z3A.01 Less than 8 weeks gestation of pregnancy
CPT/HCPCS: 36415; 80053; 83690; 85025; 96365; 96375; 99284; J2405; J2550; Q0162; S0028; J7030

== ENCOUNTER 2017-02-22 22:30 | Emergency (ER) | payer OTHER ==
[~2017-02-22] VITALS: Ht 162.6 cm; Wt 60.9 kg
[~2017-02-22 22:30] MED LIST changes: +PROM25SU32 RC
[2017-02-22] MEDS ORDERED: IV NORMAL SALINE 1,000ML 1,000 ML IV ONE (23:15)
[2017-02-22] MEDS ORDERED: ONDANSETRON PF 4 MG/2 ML VIAL. IV ONE (23:15)
[2017-02-22 23:17] LABS: BASO % 1 % (0-3); EOS # 0.1 x10^3/uL (0.0-0.7); EOS % 1 % (0-3); HEMATOCRIT 32.4 % (36.0-47.0); HEMOGLOBIN 11.2 g/dL (12.0-15.5); LYMPH # 2.5 x10^3/uL (1.0-4.8); LYMPH % 36 % (24-48); MEAN CORPUSCULAR HEMOGLOBIN 30 pg (25-35); MEAN CORPUSCULAR HGB CONC 35 g/dL (31-37); MEAN CORPUSCULAR VOLUME 88 fL (79-100); MONO # 0.7 x10^3/uL (0.0-1.1); MONO % 10 % (0-9); NEUT # 3.6 x10^3uL (1.8-7.7); NEUT % 52 % (31-73); PLATELET COUNT 186 x10^3/uL (140-400); RED BLOOD COUNT 3.71 x10^6/uL (3.50-5.40); RED CELL DISTRIBUTION WIDTH 12.8 % (11.5-14.5); WHITE BLOOD COUNT 6.9 x10^3/uL (4.0-11.0)
[2017-02-22 23:29] LABS: ALBUMIN 3.8 g/dL (3.4-5.0); ALBUMIN/GLOBULIN RATIO 1.2 (1.0-1.7); CREATININE 0.7 mg/dL (0.6-1.0); GFR 125.5; MAGNESIUM 1.7 mg/dL (1.8-2.4); POTASSIUM 3.2 mmol/L (3.5-5.1); TOTAL BILIRUBIN 0.7 mg/dL (0.2-1.0); TOTAL PROTEIN 7.1 g/dL (6.4-8.2)
[2017-02-23] MEDS ORDERED: IV NORMAL SALINE 1,000ML 1,000 ML IV ONE ×2 (00:15)
[2017-02-23] MEDS ORDERED: MAGNESIUM SULFATE 1GM 100 ML IV ONE (00:15)
[2017-02-23] MEDS ORDERED: ONDANSETRON PF 4 MG/2 ML VIAL. IV ONE (01:00)
--- NOTE | 2017-02-23 01:58 | PHYS DOC ---
Past History Past Medical History: Other Past Surgical History: No Surgical History Smoking: Non-smoker Alcohol Use: None Drug Use: None Adult General Chief Complaint Chief Complaint: VOMITING IN HPI HPI Patient is a 21 year old F at 8 weeks gestational age who presents with nausea and vomiting. She has been in the ER multiple times recently for nausea and vomiting. She has Zofran and Phenergan at home has been unable to keep any fluids down. She denies leakage of fluid, contractions or bleeding. She has no other associated symptoms. She has no exacerbating or alleviating factors. Review of Systems Review of Systems Constitutional: Denies fever or chills [] Eyes: Denies change in visual acuity, redness, or eye pain [] HENT: Denies nasal congestion or sore throat [] Respiratory: Denies cough or shortness of breath [] Cardiovascular: No additional information not addressed in HPI [] GI: Denies abdominal pain, bloody stools or diarrhea [] : Denies dysuria or hematuria [] Musculoskeletal: Denies back pain or joint pain [] Integument: Denies rash or skin lesions [] Neurologic: Denies headache, focal weakness or sensory changes [] Endocrine: Denies polyuria or polydipsia [] Family History Family History Noncontributory Current Medications Current Medications Medications reviewed Current Medications Medications (Trade) Dose Ordered Sig/Nely Start Time Stop Time Status Last Admin Dose Admin Magnesium Sulfate/ Dextrose 100 ml @ 100 mls/hr 1X ONCE 02/23/17 00:15 02/23/17 01:14 DC 02/23/17 00:26 100 MLS/HR Ondansetron HCl (Zofran) 4 mg 1X ONCE 02/23/17 01:00 02/23/17 01:04 DC 02/23/17 01:37 4 MG Sodium Chloride 1,000 ml @ 150 mls/hr 1X ONCE 02/23/17 00:15 02/23/17 06:54 02/23/17 01:37 150 MLS/HR Allergies Allergies Allergies Coded Allergies Type Severity Reaction Last Updated Verified No Known Drug Allergies 05/25/15 No Physical Exam Physical Exam Constitutional: Well developed, well nourished, mild to moderate distress HENT: Normocephalic, atraumatic, Eyes: EOMI, conjunctiva normal, no discharge. [] Neck: Normal range of motion, no tenderness, supple, no stridor. [] Cardiovascular:Heart rate regular rhythm, no murmur [] mild tachycardia Lungs & Thorax: Bilateral breath sounds clear to auscultation [] Abdomen: Bowel sounds normal, soft, no masses, no pulsatile masses. [] Nonfocal tenderness Skin: Warm, dry, no erythema, no rash. [] Back: No tenderness, no CVA tenderness. [] Extremities: No tenderness, no cyanosis, no clubbing, ROM intact, no edema. [] Neurologic: Alert and oriented X 3, normal motor function, normal sensory function, no focal deficits noted. [] Psychologic: Affect normal, judgement normal, mood normal. [] Current Patient Data Vital Signs Vital Signs Date Time Temp Pulse Resp B/P (MAP) Pulse Ox O2 Delivery O2 Flow Rate FiO2 02/22/17 22:35 98.8 105 24 100 Room Air Lab Results Laboratory Tests Test 02/22/17 22:45 White Blood Count 6.9 x10^3/uL (4.0-11.0) Red Blood Count 3.71 x10^6/uL (3.50-5.40) Hemoglobin 11.2 g/dL (12.0-15.5) L Hematocrit 32.4 % (36.0-47.0) L Mean Corpuscular Volume 88 fL (79-100) Mean Corpuscular Hemoglobin 30 pg (25-35) Mean Corpuscular Hemoglobin Concent 35 g/dL (31-37) Red Cell Distribution Width 12.8 % (11.5-14.5) Platelet Count 186 x10^3/uL (140-400) Neutrophils (%) (Auto) 52 % (31-73) Lymphocytes (%) (Auto) 36 % (24-48) Monocytes (%) (Auto) 10 % (0-9) H Eosinophils (%) (Auto) 1 % (0-3) Basophils (%) (Auto) 1 % (0-3) Neutrophils # (Auto) 3.6 x10^3uL (1.8-7.7) Lymphocytes # (Auto) 2.5 x10^3/uL (1.0-4.8) Monocytes # (Auto) 0.7 x10^3/uL (0.0-1.1) Eosinophils # (Auto) 0.1 x10^3/uL (0.0-0.7) Basophils # (Auto) 0.0 x10^3/uL (0.0-0.2) Sodium Level 138 mmol/L (136-145) Potassium Level 3.2 mmol/L (3.5-5.1) L Chloride Level 105 mmol/L (98-107) Carbon Dioxide Level 21 mmol/L (21-32) Anion Gap 12 (6-14) Blood Urea Nitrogen 6 mg/dL (7-20) L Creatinine 0.7 mg/dL (0.6-1.0) Estimated GFR (Cockcroft-Gault) 125.5 BUN/Creatinine Ratio 9 (6-20) Glucose Level 94 mg/dL (70-99) Calcium Level 9.0 mg/dL (8.5-10.1) Magnesium Level 1.7 mg/dL (1.8-2.4) L Total Bilirubin 0.7 mg/dL (0.2-1.0) Aspartate Amino Transferase (AST) 16 U/L (15-37) Alanine Aminotransferase (ALT) 16 U/L (14-59) Alkaline Phosphatase 27 U/L (46-116) L Total Protein 7.1 g/dL (6.4-8.2) Albumin 3.8 g/dL (3.4-5.0) Albumin/Globulin Ratio 1.2 (1.0-1.7) EKG EKG [] Radiology/Procedures Radiology/Procedures [] Course & Med Decision Making Course & Med Decision Making Pertinent Labs and Imaging studies reviewed. (See chart for details) Leeann did receive 2 doses of Zofran and 2 L of normal saline. She was able to rest however each time she woke up she began vomiting and was unable to hold down fluid. Dragon Disclaimer Dragon Disclaimer This chart was dictated in whole or in part using Voice Recognition software in a busy, high-work load, and often noisy Emergency Department environment. It may contain unintended and wholly unrecognized errors or omissions. Departure Departure: Impression: Primary Impression: Hyperemesis gravidarum before end of 22 week gestation with electrolyte imbalance Disposition: 05 XFER OTHER Condition: STABLE Referrals: PCP,NO (PCP) MAXIMUS CARREON MD Feb 23, 2017 01:58
[2017-02-23] MEDS ORDERED: LORazepam 1 MG TABLET PO ONE (02:15)
[2017-02-23] MEDS ORDERED: LORazepam 2 MG/ML VIAL IV ONE (02:15)
[2017-02-23 03:36] VITALS: BP 125/69
== END 2017-02-23 03:41 | disposition short-term general hospital (02) ==
LOC: ER 22:30
DX: O21.0 Mild hyperemesis gravidarum (principal); Z3A.08 8 weeks gestation of pregnancy
CPT/HCPCS: 36415; 80053; 83735; 85025; 96361; 96365; 96375; 96376; 99285; J2060; J2405; J3475; J7030

== ENCOUNTER 2017-03-06 16:11 | Emergency (ER) | payer OTHER ==
[~2017-03-06] VITALS: Ht 162.6 cm; Wt 60.9 kg
[2017-03-06 16:27] VITALS: BP 122/77
--- NOTE | 2017-03-06 17:20 | PHYS DOC ---
Past History Past Medical History: No Pertinent History Past Surgical History: No Surgical History Smoking: Non-smoker Alcohol Use: None Drug Use: None Adult General Chief Complaint Chief Complaint: VOMITING IN HPI HPI 21-year-old primigravida's female presenting to the emergency department with nausea and vomiting in . She is approximately 10 weeks by last menstrual period. She has had an ultrasound which identifies intrauterine is available in our electronic medical record. She denies vaginal bleeding. She has been diagnosed with hyperemesis gravidarum and has been admitted multiple times to both [facility] and [facility]. 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 She denies fevers chills chest pain or shortness of breath. Onset 24-48 hours. Location GI tract. Duration intermittent. Mildly alleviated with Zofran. Review of systems is negative for chest pain shortness of breath fevers chills and stools. She does report mild constipation for which her service delivery analyst has prescribed her both MiraLAX and docusate. All other review of systems is negative unless otherwise noted in history of present illness. ED course: 21-year-old female presenting with nausea and vomiting in . She has an identified intrauterine on ultrasound. Upon triage the patient is afebrile with a mild tachycardia and blood pressure. On examination the patient has a soft and nontender abdomen. Negative McBurney's point. Negative Ashley sign. Otherwise the examination is unremarkable. Blood work sent. IV fluids along with let Reglan ordered for symptomatic relief. Warm blankets provided. Unfortunately blood work not back prior to the patient being signed out at 6 PM. Patient was then signed out at [address] Calhoun with plans to follow-up on blood work and patient's response to IV fluids and antiemetic medications. Review of Systems Review of Systems SEE ABOVE. Current Medications Current Medications Current Medications Medications (Trade) Dose Ordered Sig/Nely Start Time Stop Time Status Last Admin Dose Admin Metoclopramide HCl (Reglan Vial) 10 mg 1X ONCE 03/06/17 17:30 03/06/17 17:31 Sodium Chloride 1,000 ml @ 1,000 mls/hr 1X ONCE 03/06/17 17:30 03/06/17 18:29 Allergies Allergies Allergies Coded Allergies Type Severity Reaction Last Updated Verified No Known Drug Allergies 05/25/15 No Physical Exam Physical Exam SEE ABOVE Constitutional: Well developed, well nourished, no acute distress, non-toxic appearance. [] HENT: Normocephalic, atraumatic, bilateral external ears normal, oropharynx moist, no oral exudates, nose normal. [] Eyes: PERRLA, EOMI, conjunctiva normal, no discharge. [] Neck: Normal range of motion, no tenderness, supple, no stridor. [] Cardiovascular:Heart rate regular rhythm, no murmur [] Lungs & Thorax: Bilateral breath sounds clear to auscultation [] Abdomen: Bowel sounds normal, soft, no tenderness, no masses, no pulsatile masses. [] Skin: Warm, dry, no erythema, no rash. [] Back: No tenderness, no CVA tenderness. [] Extremities: No tenderness, no cyanosis, no clubbing, ROM intact, no edema. [] Neurologic: Alert and oriented X 3, normal motor function, normal sensory function, no focal deficits noted. [] Psychologic: Affect normal, judgement normal, mood normal. [] Current Patient Data Vital Signs Vital Signs Date Time Temp Pulse Resp B/P (MAP) Pulse Ox O2 Delivery O2 Flow Rate FiO2 03/06/17 16:27 98.0 100 20 99 Room Air EKG EKG [] Radiology/Procedures Radiology/Procedures [] Course & Med Decision Making Course & Med Decision Making Pertinent Labs and Imaging studies reviewed. (See chart for details) Patient seen and evaluated by me. Patient's clinically hemodynamically stable. Patient's labs were all within normal limits. Patient feels much improved after Reglan. Patient be discharged home with a prescription for Reglan and instructions follow-up with her primary care physician for further evaluation of her hyperemesis gravidarum. [] Dragon Disclaimer Dragon Disclaimer This electronic medical record was generated, in whole or in part, using a voice recognition dictation system. Departure Departure: Impression: Primary Impression: Hyperemesis gravidarum Additional Impression: Dehydration Disposition: HOME, SELF-CARE Condition: IMPROVED Referrals: PCP,NO (PCP) Patient Instructions: Diet - Hyperemesis Gravidarum, Hyperemesis Gravidarum Scripts Metoclopramide Hcl (REGLAN) 10 Mg Tablet 1 TAB PO QID Y for NAUSEA/VOMITING, #30 TAB Prov: MALCOM CALHOUN MD 03/06/17 Problem Qualifiers KALPESH GUERRA MD Mar 06, 2017 17:20 MALCOM CALHOUN MD Mar 06, 2017 19:08
[2017-03-06] MEDS ORDERED: IV NORMAL SALINE 1,000ML 1,000 ML IV ONE (17:30)
[2017-03-06] MEDS ORDERED: METOCLOPRAMIDE HCL 10 MG/2 ML VIAL. IV ONE ×2 (17:30→19:15)
[2017-03-06 17:47] LABS: BASO % 1 % (0-3); EOS # 0.1 x10^3/uL (0.0-0.7); EOS % 1 % (0-3); HEMATOCRIT 34.1 % (36.0-47.0); HEMOGLOBIN 11.9 g/dL (12.0-15.5); LYMPH # 1.9 x10^3/uL (1.0-4.8); LYMPH % 29 % (24-48); MEAN CORPUSCULAR HEMOGLOBIN 30 pg (25-35); MEAN CORPUSCULAR HGB CONC 35 g/dL (31-37); MEAN CORPUSCULAR VOLUME 87 fL (79-100); MONO # 0.6 x10^3/uL (0.0-1.1); MONO % 9 % (0-9); NEUT % 60 % (31-73); PLATELET COUNT 243 x10^3/uL (140-400); RED BLOOD COUNT 3.91 x10^6/uL (3.50-5.40); RED CELL DISTRIBUTION WIDTH 13.4 % (11.5-14.5); WHITE BLOOD COUNT 6.6 x10^3/uL (4.0-11.0)
[2017-03-06 17:55] LABS: ALBUMIN 3.6 g/dL (3.4-5.0); CALCIUM 9.2 mg/dL (8.5-10.1); CREATININE 0.7 mg/dL (0.6-1.0); DIRECT BILIRUBIN 0.2 mg/dL (0.0-0.2); GFR 125.5; POTASSIUM 3.5 mmol/L (3.5-5.1); TOTAL BILIRUBIN 0.9 mg/dL (0.2-1.0); TOTAL PROTEIN 7.3 g/dL (6.4-8.2)
[2017-03-06 18:46] LABS: CLARITY,URINE HAZY; COLOR,URINE YELLOW; GLUCOSE,URINE NEG (NEG)
[2017-03-06 18:48] LABS: BILIRUBIN,URINE NEG (NEG)
[2017-03-06 18:49] LABS: NITRITE,URINE NEG (NEG); UROBILINOGEN,URINE 0.2 mg/dL (0.2 mg/dL)
[2017-03-06 18:51] LABS: BACTERIA,URINE FEW /HPF (0-FEW); RBC,URINE RARE /HPF (0-2); SQUAMOUS EPITHELIAL CELL,UR MOD /LPF; WBC,URINE OCC /HPF (0-4)
[2017-03-06] MEDS ORDERED: METO10TA81 PO (19:07)
== END 2017-03-06 19:44 | disposition home or self-care (01) ==
LOC: ER 16:11
DX: O21.0 Mild hyperemesis gravidarum (principal); O99.281 Endocrine, nutritional and metabolic diseases complicating pregnancy, first trimester; E86.0 Dehydration; Z3A.10 10 weeks gestation of pregnancy
CPT/HCPCS: 36415; 80048; 80076; 81001; 83690; 85025; 96361; 96374; 96375; 99285; J2765; J7030

== ENCOUNTER 2019-01-15 11:28 | Emergency (ER) | payer OTHER ==
[~2019-01-15] VITALS: Ht 162.6 cm; Wt 85.3 kg
[~2019-01-15 11:28] MED LIST changes: -DOXY25TA38 PO; +DOXY25TA49 PO; +METR-34 PO; -METR500T8 PO
[2019-01-15 11:38] VITALS: BP 124/71
[2019-01-15 12:11] LABS: BASO % 1 % (0-3); EOS # 0.1 x10^3/uL (0.0-0.7); EOS % 1 % (0-3); HEMATOCRIT 27.4 % (36.0-47.0); HEMOGLOBIN 8.8 g/dL (12.0-15.5); LYMPH % 13 % (24-48); MEAN CORPUSCULAR HEMOGLOBIN 26 pg (25-35); MEAN CORPUSCULAR HGB CONC 32 g/dL (31-37); MEAN CORPUSCULAR VOLUME 79 fL (79-100); MONO # 0.8 x10^3/uL (0.0-1.1); MONO % 10 % (0-9); NEUT # 5.8 x10^3uL (1.8-7.7); NEUT % 75 % (31-73); PLATELET COUNT 203 x10^3/uL (140-400); RED BLOOD COUNT 3.47 x10^6/uL (3.50-5.40); RED CELL DISTRIBUTION WIDTH 14.5 % (11.5-14.5); WHITE BLOOD COUNT 7.7 x10^3/uL (4.0-11.0)
--- NOTE | 2019-01-15 12:11 | PHYS DOC ---
Past History Past Medical History: GERD Past Surgical History: No Surgical History Smoking: Non-smoker Alcohol Use: None Drug Use: None Adult General Chief Complaint Chief Complaint: ABDOMINAL PAIN IN HPI HPI 23-year-old female , 30 weeks presents to emergency Department with complaints of nausea, vomiting, abdominal pain, syncope patient states she has a history of hyperemesis with previous in this she states last night nausea and vomiting started. She had a syncopal episode this morning with abdominal pain and cramping starting afterwards. She denies any loss of fluid or bleeding. Patient denies any fever. Patient states she's had movement however over the last hour or 2 has had decreased movement. heart tones assessed in the emergency department, 152 (right lower quadrant) Review of Systems Review of Systems Constitutional: Denies fever or chills [] Eyes: Denies change in visual acuity, redness, or eye pain [] HENT: Denies nasal congestion or sore throat [] Respiratory: Denies cough or shortness of breath [] Cardiovascular: No additional information not addressed in HPI [] GI: + bdominal pain, nausea, vomiting, no bloody stools or diarrhea, decreased movements : Denies dysuria or hematuria [] Musculoskeletal: Denies back pain or joint pain [] Neurologic: + headache, no focal weakness or sensory changes [] All other systems were reviewed and found to be within normal limits, except as documented in this note. Allergies Allergies Allergies Coded Allergies Type Severity Reaction Last Updated Verified No Known Drug Allergies 05/25/15 No Physical Exam Physical Exam Constitutional: Well developed, well nourished, ill appearing, non-toxic HENT: Normocephalic, atraumatic, bilateral external ears normal, oropharynx dry, no oral exudates, nose normal. [] Eyes: PERRLA, EOMI, conjunctiva normal, no discharge. [] Cardiovascular:Heart rate regular rhythm, no murmur [] Lungs & Thorax: Bilateral breath sounds clear to auscultation [] Abdomen: Bowel sounds normal, soft, generalized tenderness, no masses, no pulsatile masses. gravid uterus[] Skin: Warm, dry, no erythema, no rash. [] Back: No tenderness, no CVA tenderness. [] Extremities: No tenderness, no cyanosis, no clubbing, ROM intact, no edema. [] Neurologic: Alert and oriented X 3, no focal deficits noted. [] Psychologic: Affect normal, judgement normal, mood normal. [] Current Patient Data Vital Signs Vital Signs Date Time Temp Pulse Resp B/P (MAP) Pulse Ox O2 Delivery O2 Flow Rate FiO2 01/15/19 11:38 98.5 98 18 98 Room Air EKG EKG [] Radiology/Procedures Radiology/Procedures [] Course & Med Decision Making Course & Med Decision Making Pertinent Labs and Imaging studies reviewed. (See chart for details) []23-year-old female , 30 weeks presents to emergency Department with complaints of nausea, vomiting, abdominal pain, syncope patient states she has a history of hyperemesis with previous in this she states last night nausea and vomiting started. She had a syncopal episode this morning with abdominal pain and cramping starting afterwards. She denies any loss of fluid or bleeding. Patient denies any fever. Patient states she's had movement however over the last hour or 2 has had decreased movement. heart tones assessed in the emergency department, 152 (right lower quadrant) Discussed with DR. NORTON pupil personnel services director OB recommends seeing patient at [facility] for further monitoring on tocometry. Discussed with patient and family at bedside. Labs reviewed. Dragon Disclaimer Dragon Disclaimer This electronic medical record was generated, in whole or in part, using a voice recognition dictation system. Departure Departure: Impression: Primary Impression: Abdominal pain during Additional Impressions: Nausea & vomiting Syncope and collapse Disposition: 05 TRANSFER OTHER Condition: STABLE Referrals: PCP,NO (PCP) Patient Instructions: Abdominal Pain During , [id number], Syncope, [id number] Additional Instructions: Discussed with OB will plan for monitoring at [facility] after discharged from [place] [facility] Return to the ER with worsening symptoms, intractable pain, fever, altered mental status IV fluids given in the ER x 1 liter Maalox po for reflux Problem Qualifiers Primary Impression: Abdominal pain during Trimester: second trimester Qualified Codes: O26.892 - Other specified related conditions, second trimester; R10.9 - Unspecified abdominal pain Additional Impressions: Nausea & vomiting Vomiting type: unspecified Vomiting Intractability: intractable Qualified Codes: R11.2 - Nausea with vomiting, unspecified GALDINO METZ MD Jan 15, 2019 12:11
[2019-01-15] MEDS ORDERED: IV NORMAL SALINE 1,000ML 1,000 ML IV ONE (12:15)
[2019-01-15 12:21] LABS: ALBUMIN 2.5 g/dL (3.4-5.0); ALBUMIN/GLOBULIN RATIO 0.6 (1.0-1.7); CALCIUM 8.5 mg/dL (8.5-10.1); CREATININE 0.6 mg/dL (0.6-1.0); GFR 147.4; TOTAL BILIRUBIN 0.8 mg/dL (0.2-1.0); TOTAL PROTEIN 6.8 g/dL (6.4-8.2)
[2019-01-15 12:22] LABS: POTASSIUM 3.7 mmol/L (3.5-5.1)
[2019-01-15] MEDS ORDERED: MAG HYDROX/AL HYDROX/SIMETH 30 ML ORAL.SUSP PO ONE (12:30)
[2019-01-15 13:33] LABS: BACTERIA,URINE MOD /HPF (0-FEW); BILIRUBIN,URINE NEG (NEG); CLARITY,URINE HAZY; COLOR,URINE YELLOW; GLUCOSE,URINE NEG (NEG); NITRITE,URINE NEG (NEG); RBC,URINE RARE /HPF (0-2); SQUAMOUS EPITHELIAL CELL,UR MANY /LPF; UROBILINOGEN,URINE 1 mg/dL (0.2 mg/dL)
== END 2019-01-15 13:18 | disposition short-term general hospital (02) ==
LOC: ER 11:28
DX: O21.8 Other vomiting complicating pregnancy (principal); O26.893 Other specified pregnancy related conditions, third trimester; R55 Syncope and collapse; R10.84 Generalized abdominal pain; K21.9 Gastro-esophageal reflux disease without esophagitis; Z3A.30 30 weeks gestation of pregnancy
CPT/HCPCS: 36415; 80053; 81001; 85025; 87086; 96360; 99284-25; 99285-25; J7030

== ENCOUNTER 2020-05-25 10:48 | Emergency (ER) | payer OTHER ==
[~2020-05-25] VITALS: Ht 162.6 cm; Wt 60.9 kg
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
[2020-05-25] MEDS ORDERED: IBUPROFEN 600 MG TABLET. PO ONE (11:15)
[2020-05-25] MEDS ORDERED: DIPH,PERTUSS(ACELL),TET VAC/PF 0.5 ML SYRINGE. VAX IM ONE (11:15)
[2020-05-25] MEDS ORDERED: HYDR-2759 PO (11:53)
== END 2020-05-25 12:10 | disposition home or self-care (01) ==
LOC: ER 10:48
DX: T24.211A Burn of second degree of right thigh, initial encounter (principal); K21.9 Gastro-esophageal reflux disease without esophagitis; X19.XXXA Contact with other heat and hot substances, initial encounter; Y93.G3 Activity, cooking and baking; Y92.89 Other specified places as the place of occurrence of the external cause; Y99.8 Other external cause status
CPT/HCPCS: 90471; 90715; 99283

== ENCOUNTER 2020-07-28 04:00 | Emergency (ER) | payer OTHER ==
[~2020-07-28] VITALS: Ht 162.6 cm; Wt 60.9 kg
[~2020-07-28 04:00] MED LIST changes: +HYDR-2759 PO
[2020-07-28 04:23] VITALS: BP 125/71
[2020-07-28] MEDS: ONDANSETRON PF 4 MG/2 ML VIAL. IVP ONE (04:40)
[2020-07-28 04:41] LABS: BASO % 1 % (0-3); EOS # 0.1 x10^3/uL (0.0-0.7); EOS % 2 % (0-3); HEMATOCRIT 37.3 % (36.0-47.0); HEMOGLOBIN 12.5 g/dL (12.0-15.5); LYMPH # 2.3 x10^3/uL (1.0-4.8); LYMPH % 38 % (24-48); MEAN CORPUSCULAR HEMOGLOBIN 29 pg (25-35); MEAN CORPUSCULAR HGB CONC 34 g/dL (31-37); MEAN CORPUSCULAR VOLUME 88 fL (79-100); MONO # 0.4 x10^3/uL (0.0-1.1); MONO % 7 % (0-9); NEUT # 3.1 x10^3uL (1.8-7.7); NEUT % 52 % (31-73); PLATELET COUNT 158 x10^3/uL (140-400); RED BLOOD COUNT 4.26 x10^6/uL (3.50-5.40); RED CELL DISTRIBUTION WIDTH 13.5 % (11.5-14.5); WHITE BLOOD COUNT 5.9 x10^3/uL (4.0-11.0)
[2020-07-28 04:44] LABS: CALCIUM 8.7 mg/dL (8.5-10.1); CREATININE 0.7 mg/dL (0.6-1.0); GFR 121.5; POTASSIUM 3.9 mmol/L (3.5-5.1)
--- NOTE | 2020-07-28 05:03 | PHYS DOC ---
Past History Past Medical History: GERD, Other Additional Past Medical Histor: crohns (MADELINE FLOWERS MD) Past Surgical History: Tubal ligation (MADELINE FLOWERS MD) Smoking: Non-smoker Alcohol Use: Occasionally Drug Use: None (MADELINE FLOWERS MD) Adult General Chief Complaint Chief Complaint: FLANK PAIN HPI HPI Patient is a 25-year-old female who presents to the emergency department with a chief complaint of right flank pain, 7 out of 10, sharp in nature with associated nausea but no vomiting. States she has a history of kidney stones and this feels similar. Denies any recent travel, illnesses, fevers, chest pain, shortness of breath, vomiting, dysuria, hematuria or blood in the stool. Denies any vaginal bleeding, discharge or pain. Denies any history of STIs. (MADELINE FLOWERS MD) Review of Systems Review of Systems Review of systems otherwise unremarkable except noted in HPI (MADELINE FLOWERS MD) Current Medications Current Medications Current Medications Medications (Trade) Dose Ordered Sig/Nely Start Time Stop Time Status Last Admin Dose Admin Fentanyl Citrate (Fentanyl 2ml Vial) 50 mcg 1X ONCE 07/28/20 05:00 07/28/20 05:01 07/28/20 04:40 50 MCG Ondansetron HCl (Zofran) 4 mg 1X ONCE 07/28/20 05:00 07/28/20 05:01 07/28/20 04:40 4 MG (MADELINE FLOWERS MD) Allergies Allergies Allergies Coded Allergies Type Severity Reaction Last Updated Verified No Known Drug Allergies 07/28/20 No (MADELINE FLOWERS MD) Physical Exam Physical Exam Constitutional: Well developed, well nourished, no acute distress, non-toxic appearance. [] HENT: Normocephalic, atraumatic, bilateral external ears normal, oropharynx moist, no oral exudates, nose normal. [] Eyes: conjunctiva normal, no discharge. [] Cardiovascular:Heart rate regular rhythm, no murmur [] Lungs & Thorax: Bilateral breath sounds clear to auscultation [] Abdomen: soft, no tenderness, no masses, no pulsatile masses. [] Skin: Warm, dry, no erythema, no rash. [] Back: no CVA tenderness. [] Neurologic: Alert and oriented X 3, normal motor function, normal sensory function, no focal deficits noted. [] Psychologic: Affect normal, judgement normal, mood normal. [] (MADELINE FLOWERS MD) Current Patient Data Vital Signs Vital Signs Date Time Temp Pulse Resp B/P (MAP) Pulse Ox O2 Delivery O2 Flow Rate FiO2 07/28/20 04:40 18 Room Air 07/28/20 04:23 97.8 72 125/71 (89) 99 Lab Results Laboratory Tests Test 07/28/20 04:10 White Blood Count 5.9 x10^3/uL (4.0-11.0) Red Blood Count 4.26 x10^6/uL (3.50-5.40) Hemoglobin 12.5 g/dL (12.0-15.5) Hematocrit 37.3 % (36.0-47.0) Mean Corpuscular Volume 88 fL (79-100) Mean Corpuscular Hemoglobin 29 pg (25-35) Mean Corpuscular Hemoglobin Concent 34 g/dL (31-37) Red Cell Distribution Width 13.5 % (11.5-14.5) Platelet Count 158 x10^3/uL (140-400) Neutrophils (%) (Auto) 52 % (31-73) Lymphocytes (%) (Auto) 38 % (24-48) Monocytes (%) (Auto) 7 % (0-9) Eosinophils (%) (Auto) 2 % (0-3) Basophils (%) (Auto) 1 % (0-3) Neutrophils # (Auto) 3.1 x10^3uL (1.8-7.7) Lymphocytes # (Auto) 2.3 x10^3/uL (1.0-4.8) Monocytes # (Auto) 0.4 x10^3/uL (0.0-1.1) Eosinophils # (Auto) 0.1 x10^3/uL (0.0-0.7) Basophils # (Auto) 0.0 x10^3/uL (0.0-0.2) Sodium Level 139 mmol/L (136-145) Potassium Level 3.9 mmol/L (3.5-5.1) Chloride Level 104 mmol/L (98-107) Carbon Dioxide Level 25 mmol/L (21-32) Anion Gap 10 (6-14) Blood Urea Nitrogen 15 mg/dL (7-20) Creatinine 0.7 mg/dL (0.6-1.0) Estimated GFR (Cockcroft-Gault) 121.5 Glucose Level 105 mg/dL (70-99) H Calcium Level 8.7 mg/dL (8.5-10.1) (MADELINE FLOWERS MD) EKG EKG [] (MADELINE FLOWERS MD) Radiology/Procedures Radiology/Procedures [] (MADELINE FLOWERS MD) Radiology/Procedures Abdominal and Pelvis CT, Without Contrast: History: Reason: flank pain, right side / Spl. Instructions: / History: Comparison: None. Procedure: Axial images are obtained of the abdomen and pelvis, without IV or oral contrast. Oral Contrast: No Findings: Evaluation of solid organs is limited without contrast. The gallbladder is not fully distended but appears normal. The appendix is normal. The uterus and ovaries appear within normal limits. The left colon is collapsed limiting its evaluation. Liver: Normal. Spleen: Normal. Pancreas: Normal. Adrenal Glands: Normal. Kidneys: Normal. There is no free air or free fluid. There is no lymphadenopathy. The urinary bladder appears normal. There is no pericolonic inflammation identified. Impression: No acute findings. End impression PQRS Compliance Statement: One or more of the following individualized dose reduction techniques were utilized for this examination: 1. Automated exposure control 2. Adjustment of the mA and/or kV according to patient size 3. Use of iterative reconstruction technique Electronically signed by: Kvng Yadav III, MD (07/28/2020 6:07 AM) [facility] (CITLALY GIRON DO) Heart Score C/O Chest Pain: No Risk Factors: Risk Factors: DM, Current or recent (<one month) smoker, HTN, HLP, family history of CAD, obesity. Risk Scores: Risk Factors: DM, Current or recent (<one month) smoker, HTN, HLP, family history of CAD, obesity. (MADELINE FLOWERS MD) HEART Score for Chest Pain: HEART Score for Chest Pain Response (Comments) Value History Slighlty/Non-Suspicious 0 Age < 45 0 Risk Factors No Risk Factors 0 Total 0 Course & Med Decision Making Course & Med Decision Making Patient is a 25-year-old female who presents with a chief complaint of right flank pain for a day and a half Vital signs not concerning. Physical exam noted above. Given Zofran for nausea and fentanyl for pain. Laboratory analysis not concerning. Urine negative. Urinalysis and CT pending. Patient care transferred to day team. [] (MADELINE FLOWERS MD) Course & Med Decision Making I assumed care of patient after comprehensive signout from off going physician Reviewed ER work-up thus far, I repeated certain aspects of history and physical exam. I reviewed negative CT imaging of abdomen and pelvis. Reviewed case, patient likely suffering from MSK etiology, I suspect right flank/lower back pain similar to sciatica Supportive care advised. Time of ER departure, patient reports developing a migraine. She was amenable to receiving migraine cocktail medications with transport home for continued supportive care and close PCP follow-up within upcoming 72 hours Strict return precautions discussed with good understanding by patient, all questions and concerns addressed prior to your departure (CITLALY GIRON DO) Dragon Disclaimer Dragon Disclaimer This electronic medical record was generated, in whole or in part, using a voice recognition dictation system. (MADELINE FLOWERS MD) Departure Departure: Impression: Primary Impression: Flank pain Disposition: 01 DC HOME SELF CARE/HOMELESS Condition: STABLE Referrals: ASHISH PETTIT (PCP) Patient Instructions: Flank Pain Additional Instructions: You have been evaluated in the Emergency Department today for flank pain. Your evaluation was not suggestive of any emergent condition requiring medical intervention at this time. However, some flank problems make take more time to appear. Therefore, it is important for you to watch for any new symptoms or worsening of your current condition. Please contact your primary care provider first thing in the morning to review your ER visit today. There might be indication for further diagnostic work-up in outpatient setting and/or referral for consultation with a specialist Return to the Emergency Department if you experience worsening pain, persistent fevers greater than 100.4, recurrent vomiting, blood in vomit, blood in stool, dark tarry stool, chest pain, difficulty breathing, or any other concerning symptoms. MADELINE FLOWERS MD Jul 28, 2020 05:03 CITLALY GIRON DO Jul 28, 2020 06:18
[2020-07-28 05:55] LABS: BACTERIA,URINE 0 /HPF (0-FEW); BILIRUBIN,URINE NEG (NEG); CLARITY,URINE CLEAR; COLOR,URINE YELLOW; GLUCOSE,URINE NEG (NEG); NITRITE,URINE NEG (NEG); RBC,URINE 0 /HPF (0-2); SQUAMOUS EPITHELIAL CELL,UR OCC /LPF; UROBILINOGEN,URINE 0.2 mg/dL (0.2 mg/dL); WBC,URINE RARE /HPF (0-4)
--- NOTE | 2020-07-28 06:10 | RAD ---
Abdominal and Pelvis CT, Without Contrast: History: Reason: flank pain, right side / Spl. Instructions: / History: Comparison: None. Procedure: Axial images are obtained of the abdomen and pelvis, without IV or oral contrast. Oral Contrast: No Findings: Evaluation of solid organs is limited without contrast. The gallbladder is not fully distended but appears normal. The appendix is normal. The uterus and ova irena appear within normal limits. The left colon is collapsed limiting its evaluation. Liver: Normal. Spleen: Normal. Pancreas: Normal. Adrenal Glands: Normal. Kidneys: Normal. There is no free air or free fluid. There is no lymphadenopathy. The urinary bladder appears normal. There is no pericolonic inflammation identified. Impression: No acute findings. End impression PQRS Compliance Statement: One or more of the following individualized dose reduction techniques were utilized for this examinat ion: 1. Automated exposure control 2. Adjustment of the mA and/or kV according to patient size 3. Use of iterative reconstruction technique Electronically signed by: Kvng Yadav III, MD (07/28/2020 6:07 AM) [facility]
[2020-07-28] MEDS: KETOROLAC 15 MG/ML VIAL. IVP ONE (06:32)
[2020-07-28] MEDS: diphenhydrAMINE 50 MG/ML VIAL IVP ONE (06:32)
[2020-07-28] MEDS: PROCHLORPERAZINE 10 MG/2 ML VIAL. IV ONE (06:32)
== END 2020-07-28 06:40 | disposition home or self-care (01) ==
LOC: ER 04:00
DX: R10.9 Unspecified abdominal pain (principal); M54.5 Low back pain; R07.9 Chest pain, unspecified; K21.9 Gastro-esophageal reflux disease without esophagitis; Z98.51 Tubal ligation status
CPT/HCPCS: 36415; 74176; 80048; 81001; 81025; 85025; 96374; 96375; 99284; J0780; J1200; J1885; J2405; J3010

== ENCOUNTER 2020-11-03 20:34 | Emergency (ER) | payer OTHER ==
[~2020-11-03] VITALS: Ht 162.6 cm; Wt 75.0 kg
[2020-11-03 21:00] VITALS: BP 126/82
[2020-11-03] MEDS ORDERED: ACETAMINOPHEN 500 MG TABLET PO ONE (22:00)
[2020-11-03] MEDS ORDERED: IBUPROFEN 600 MG TABLET. PO ONE (22:00)
--- NOTE | 2020-11-03 22:06 | PHYS DOC ---
Past History Past Medical History: GERD, Other Additional Past Medical Histor: crohns Past Surgical History: Tubal ligation Smoking: Non-smoker Alcohol Use: Occasionally Drug Use: None Adult General Chief Complaint Chief Complaint: FOOT INJURY PAIN HPI HPI Patient is a 25-year-old female who presents with right foot and ankle pain after twisting it while walking down the stairs, 6 out of 10, dull aching nature. Able to walk. Denies any other injuries. Did not take any medications. Review of Systems Review of Systems Review of systems otherwise unremarkable except noted in HPI Current Medications Current Medications Current Medications Medications (Trade) Dose Ordered Sig/Nely Start Time Stop Time Status Last Admin Dose Admin Acetaminophen (Tylenol) 1,000 mg 1X ONCE 11/03/20 22:00 11/03/20 22:01 DC 11/03/20 21:58 1,000 MG Ibuprofen (Motrin) 600 mg 1X ONCE 11/03/20 22:00 11/03/20 22:01 DC 11/03/20 21:57 600 MG Allergies Allergies Allergies Coded Allergies Type Severity Reaction Last Updated Verified No Known Drug Allergies 11/03/20 No Physical Exam Physical Exam Constitutional: Well developed, well nourished, no acute distress, non-toxic appearance. [] Extremities: Mild tenderness and swelling around ankle with no obvious deformities or bruising. Neurovascular exam intact. Neurologic: Alert and oriented X 3, normal motor function, normal sensory function, no focal deficits noted. [] Psychologic: Affect normal, judgement normal, mood normal. [] Current Patient Data Vital Signs Vital Signs Date Time Temp Pulse Resp B/P (MAP) Pulse Ox O2 Delivery O2 Flow Rate FiO2 11/03/20 21:00 98.5 77 16 126/82 99 Room Air EKG EKG [] Radiology/Procedures Radiology/Procedures [] Heart Score C/O Chest Pain: No Risk Factors: Risk Factors: DM, Current or recent (<one month) smoker, HTN, HLP, family history of CAD, obesity. Risk Scores: Risk Factors: DM, Current or recent (<one month) smoker, HTN, HLP, family history of CAD, obesity. Course & Med Decision Making Course & Med Decision Making Patient is a 25-year-old female who presents with right ankle pain after twisting it while walking down the stairs Vital signs not concerning. Physical exam noted above. Given Tylenol, ibu profen and ice pack. Imaging with no acute osseous abnormalities. Placed in Gurpreet wrap and gave instructions on pain management at home. Gave crutches and training on crutches to use as needed. Advised to call primary care physician in the morning to update on ED visit and set up a follow-up as needed. Gave return precautions to the ED. Patient grateful, verbalized understanding a nd agreed with plan of discharge. [] Dragon Disclaimer Dragon Disclaimer This electronic medical record was generated, in whole or in part, using a voice recognition dictation system. Departure Departure: Impression: Primary Impression: Ankle sprain Disposition: HOME / SELF CARE / HOMELESS Condition: GOOD Referrals: ASHISH PETTIT (PCP) Patient Instructions: Ankle Sprain, RICE - Routine Care for Injuries Additional Instructions: Thank you for coming into the emergency department and allowing us to take care of you. Please read all of the attached information very carefully to go back over what we discussed. You can use Tylenol, ibuprofen and ice as needed for p ain control at home. You can use the Gurpreet wrap given to you and demonstrated as needed for pain control per conversation and education. You are given a set of crutches to use as needed and trained on use. Please call your primary care physician first thing in the morning to update on your ED visit and set up a follow-up visit. Please come back to the ED with new or concerning symptoms as discussed. MADELINE FLOWERS MD Nov 03, 2020 22:06
--- NOTE | 2020-11-03 22:49 | RAD ---
Study: 1. XR FOOT_RIGHT 3 VIEWS 2. XR EXAM OF ANKLE_RIGHT 3VIEWS Indication: Injury with swelling. Rolled ankle. Comparison: None. Findings: Ankle: The malleoli are intact. The ankle mortise is symmetric noting the absence of weightbearing. No focal lucency seen at the subchondral aspect of the talar dome. Foot: No acute fracture is identified with particular attention paid to the sites of common injury with inv ersion injury such as the dorsal talonavicular joint, anterior calcaneal process, dorsolateral calcan eocuboid joint and base of the fifth metatarsal. Alignment is within normal limits. Maintained joint spaces. Impression: Right ankle and foot: No acute osseous abnormality is apparent by radiography. Electronically signed by: ALEXIS SAM MD (11/03/2020 10:46 PM) [facility]
== END 2020-11-03 22:39 | disposition home or self-care (01) ==
LOC: ER 20:34
DX: S93.401A Sprain of unspecified ligament of right ankle, initial encounter (principal); K21.9 Gastro-esophageal reflux disease without esophagitis; X50.9XXA Other and unspecified overexertion or strenuous movements or postures, initial encounter; Y93.01 Activity, walking, marching and hiking; Y92.89 Other specified places as the place of occurrence of the external cause; Y99.8 Other external cause status
CPT/HCPCS: 73610; 73630; 99284

== ENCOUNTER 2021-04-20 20:00 | Emergency (ER) | payer OTHER ==
[~2021-04-20] VITALS: Ht 160 cm; Wt 87.0 kg
--- NOTE | 2021-04-20 20:55 | PHYS DOC ---
Past History Past Medical History: GERD, Other Additional Past Medical Histor: crohns Past Surgical History: Tubal ligation Smoking: Non-smoker Alcohol Use: Occasionally Drug Use: None General Adult EDM: Chief Complaint: HEADACHE HPI: HPI: 25-year-old female presents with headache. Patient states that her headache started around 9 AM. It started behind her eyes and radiated back to her occipital region. It is a pressure sensation more on the right side than the left. She states this is similar to migraines that she has had in the past. The patient tried Advil without relief earlier. She has not been having migraines for a while and does not take any other medications for them. She has some nausea but denies vomiting. She was eating and drinking normally prior to this episode. She denies any falls or trauma. Review of Systems: Review of Systems: Constitutional: Denies fever or chills Eyes: Denies change in visual acuity HENT: Denies nasal congestion or sore throat Respiratory: Denies cough or shortness of breath Cardiovascular: Denies chest pain or edema GI: Denies abdominal pain, nausea, vomiting, bloody stools or diarrhea : Denies dysuria Musculoskeletal: Denies back pain or joint pain Integument: Denies rash Neurologic: Headache. Denies focal weakness or sensory changes Endocrine: Denies polyuria or polydipsia Lymphatic: Denies swollen glands Psychiatric: Denies depression or anxiety Current Medications: Current Meds: Current Medications Medications (Trade) Dose Ordered Sig/Nely Start Time Stop Time Status Last Admin Dose Admin Diphenhydramine HCl (Benadryl) 25 mg 1X ONCE 04/20/21 21:00 04/20/21 21:01 UNV Ketorolac Tromethamine (Toradol 30mg Vial) 30 mg 1X ONCE 04/20/21 21:00 04/20/21 21:01 UNV Metoclopramide HCl (Reglan Vial) 10 mg 1X ONCE 04/20/21 21:00 04/20/21 21:01 UNV Sodium Chloride 1,000 ml @ 1,000 mls/hr 1X ONCE 04/20/21 21:00 04/20/21 21:59 UNV Allergies: Allergies: Allergies Coded Allergies Type Severity Reaction Last Updated Verified No Known Drug Allergies 11/03/20 No Physical Exam: PE: Constitutional: Well developed, well nourished, no acute distress, non-toxic appearance. [] HENT: Normocephalic, atraumatic, bilateral external ears normal, oropharynx moist, no oral exudates, nose normal. [] Eyes: PERRLA, EOMI, conjunctiva normal, no discharge. Photophobia. [] Neck: Normal range of motion, no tenderness, supple, no stridor. [] Cardiovascular: Heart rate regular rhythm, no murmur [] Lungs & Thorax: Bilateral breath sounds clear to auscultation [] Abdomen: Bowel sounds normal, soft, no tenderness, no masses, no pulsatile masses. [] Skin: Warm, dry, no erythema, no rash. [] Back: No tenderness, no CVA tenderness. [] Extremities: No tenderness, no cyanosis, no clubbing, ROM intact, no edema. [] Neurologic: Alert and oriented X 3, normal motor function, normal sensory function, no focal deficits noted. [] Psychologic: Affect normal, judgement normal, mood normal. [] EKG: EKG: [] Radiology/Procedures: Radiology/Procedures: [] Heart Score: C/O Chest Pain: N/A Risk Factors: Risk Factors: DM, Current or recent (<one month) smoker, HTN, HLP, family history of CAD, obesity. Risk Scores: Score 0 - 3: 2.5% MACE over next 6 weeks - Discharge Home Score 4 - 6: 20.3% MACE over next 6 weeks - Admit for Clinical Observation Score 7 - 10: 72.7% MACE over next 6 weeks - Early Invasive Strategies Course & Med Decision Making: Course & Med Decision Making Pertinent Labs and Imaging studies reviewed. (See chart for details) The patient's labs are unremarkable. For her headache I given her a liter normal saline, 10 mg of Reglan, 25 mg of Benadryl, 30 mg of Toradol. The patient is feeling better. She is stable for discharge at this time. [] Dragon Disclaimer: Noah Disclaimer: This electronic medical record was generated, in whole or in part, using a voice recognition dictation system. Departure Departure: Impression: Primary Impression: Migraine headache Disposition: HOME / SELF CARE / HOMELESS Condition: IMPROVED Referrals: ASHISH PETTIT (PCP) Patient Instructions: Migraine Headache, [id number] ALO RIBERA DO Apr 20, 2021 20:55
[2021-04-20] MEDS ORDERED: KETOROLAC 30 MG/ML VIAL. IVP ONE (21:00)
[2021-04-20] MEDS ORDERED: diphenhydrAMINE 50 MG/ML VIAL IVP ONE (21:00)
[2021-04-20] MEDS ORDERED: IV NORMAL SALINE 1,000ML 1,000 ML IV ONE (21:00)
[2021-04-20] MEDS ORDERED: METOCLOPRAMIDE HCL 10 MG/2 ML VIAL. IVP ONE (21:00)
[2021-04-20 21:38] LABS: BASO % 0 % (0-3); EOS % 1 % (0-3); HEMATOCRIT 35.9 % (36.0-47.0); HEMOGLOBIN 11.9 g/dL (12.0-15.5); LYMPH # 0.3 x10^3/uL (1.0-4.8); LYMPH % 4 % (24-48); MEAN CORPUSCULAR HEMOGLOBIN 29 pg (25-35); MEAN CORPUSCULAR HGB CONC 33 g/dL (31-37); MEAN CORPUSCULAR VOLUME 88 fL (79-100); MONO # 0.7 x10^3/uL (0.0-1.1); MONO % 10 % (0-9); NEUT # 5.6 x10^3uL (1.8-7.7); NEUT % 85 % (31-73); PLATELET COUNT 179 x10^3/uL (140-400); RED CELL DISTRIBUTION WIDTH 13.4 % (11.5-14.5); WHITE BLOOD COUNT 6.6 x10^3/uL (4.0-11.0)
[2021-04-20 21:43] LABS: BILIRUBIN,URINE NEG (NEG); CLARITY,URINE CLEAR; COLOR,URINE YELLOW; GLUCOSE,URINE NEG (NEG)
[2021-04-20 21:44] LABS: BACTERIA,URINE MOD /HPF (0-FEW); NITRITE,URINE NEG (NEG); RBC,URINE OCC /HPF (0-2); SQUAMOUS EPITHELIAL CELL,UR MANY /LPF; UROBILINOGEN,URINE 0.2 mg/dL (0.2 mg/dL)
[2021-04-20 21:51] LABS: CALCIUM 8.4 mg/dL (8.5-10.1); CREATININE 0.7 mg/dL (0.6-1.0); GFR 121.5; POTASSIUM 3.8 mmol/L (3.5-5.1)
[2021-04-20 21:57] LABS: ALBUMIN 3.5 g/dL (3.4-5.0); TOTAL BILIRUBIN 0.3 mg/dL (0.2-1.0); TOTAL PROTEIN 6.9 g/dL (6.4-8.2)
[2021-04-20 22:19] VITALS: BP 130/68
== END 2021-04-20 22:23 | disposition home or self-care (01) ==
LOC: ER 20:00
DX: G43.909 Migraine, unspecified, not intractable, without status migrainosus (principal); K21.9 Gastro-esophageal reflux disease without esophagitis
CPT/HCPCS: 36415; 80053; 81001; 81025; 85025; 87086; 96361; 96374; 96375; 99284; J1200; J1885; J2765; J7030